=== PATIENT | male | born 1945 | race African-American/Black ===

== ENCOUNTER 2020-07-03 10:51 | Inpatient (IN) | payer MEDICARE, OTHER ==
[~2020-07-03] VITALS: Ht 177.8 cm; Wt 59.9 kg
--- NOTE | 2020-07-03 11:38 | PHYS DOC ---
General Adult EDM: Chief Complaint: SEIZURE HPI: HPI: Patient is a 74 year old male from a prison very poor historian with aphasia, left-sided hemiplegia, cognitive deficits, who presents to the ED today to be evaluated after having 5 seizures during the night. It is unknown if the seizures were witnessed or not he is from a prison. Review of Systems: Review of Systems: Constitutional: Denies fever or chills. [] Eyes: Denies change in visual acuity. [] HENT: Denies nasal congestion or sore throat. [] Respiratory: Denies cough or shortness of breath. [] Cardiovascular: Denies chest pain or edema. [] GI: Denies abdominal pain, nausea, vomiting, bloody stools or diarrhea. [] : Denies dysuria. [] Musculoskeletal: Denies back pain or joint pain. [] Integument: Denies rash. [] Neurologic: Reports seizures. Denies headache, focal weakness or sensory changes. [] Endocrine: Denies polyuria or polydipsia. [] Lymphatic: Denies swollen glands. [] Psychiatric: Denies depression or anxiety. [] Heart Score: Risk Factors: Risk Factors: DM, Current or recent (<one month) smoker, HTN, HLP, family history of CAD, obesity. Risk Scores: Score 0 - 3: 2.5% MACE over next 6 weeks - Discharge Home Score 4 - 6: 20.3% MACE over next 6 weeks - Admit for Clinical Observation Score 7 - 10: 72.7% MACE over next 6 weeks - Early Invasive Strategies Physical Exam: PE: Constitutional: Well developed, well nourished, no acute distress, non-toxic appearance. [] HENT: Normocephalic, atraumatic, bilateral external ears normal, oropharynx moist, no oral exudates, nose normal. [] Eyes: PERRLA, EOMI, conjunctiva normal, no discharge. [] Neck: Normal range of motion, no tenderness, supple, no stridor. [] Cardiovascular:Heart rate regular rhythm, no murmur [] Lungs & Thorax: Bilateral breath sounds clear to auscultation [] Abdomen: Feeding tube present bowel sounds normal, soft, no tenderness, no mas ses, no pulsatile masses. [] Skin: Warm, dry, no erythema, no rash. [] Male -moderately swollen testicles. Unknown if this is chronic Back: No tenderness, no CVA tenderness. [] Extremities: Left sided weakness noted. No tenderness, no cyanosis, no clubbing, ROM limited to the left side, no edema. [] Neurologic: Left facial droop likely chronic. Chronic left facial droop noted. Left hemiplegic. alert and oriented X 1, normal motor function, normal sensory function, no focal deficits noted. [] Psychologic: Flat affect EKG: EKG: [] Radiology/Procedures: Radiology/Procedures: []PROCEDURE: CT HEAD WO CONTRAST CT HEAD WO CONTRAST Date: 07/03/2020 12:11 PM Clinical Indication: Reason: seizures / Spl. Instructions: / History: Comparison: 06/10/2019. Technique: 5 mm axial tomographic images were obtained of the head without contrast. These were viewed on brain and bone windows. One or more of the following dose reduction techniques were utilized: Automated exposure control (AEC), Adjustment of mA and/or kV according to patient size, Use of iterative reconstruction technique such as ASiR, CT scan done according to ALARA and image gently/image wisely Findings: Moderate generalized cerebral and cerebellar volume loss. Extensive nonspecific periventricular hypoattenuation, most commonly seen with chronic small vessel ischemic disease. Calcified atherosclerosis of the bilateral cavernous and paraclinoid internal carotid arteries and intracranial vertebral arteries. No intra- or extra-axial mass or fluid collection. No acute hemorrhage. The ventricles are normal in size, shape, and morphology. The hicks-white matter junction is normal. The subarachnoid cisterns are patent. Old right lamina papyracea fracture. Frontal sinus mucosal thickening. The visualized portions of the orbits and globes are normal. The mastoid air cells are clear. The call center nurse topogram shows no lytic lesion or fracture. Impression: No acute intracranial process. Moderate cerebral volume loss. Extensive chronic small vessel ischemic disease. Electronically signed by: Cecil Garcia MD (07/03/2020 12:31 PM) [id number] DICTATED and SIGNED BY: CECIL GARCIA MD DATE: 07/03/20 1231 ROCEDURE: PORTABLE CHEST 1V AP chest. HISTORY: Left-sided weakness AP view was taken of the chest. There is mild density in both lung bases from atelectasis or infiltrates. There is no effusion. Heart is within normal limits in size without heart failure. IMPRESSION: 1. Basilar atelectasis or infiltrates. Electronically signed by: Nolan Falcon MD (07/03/2020 12:31 PM) [facility] DICTATED and SIGNED BY: NOLAN FALCON MD DATE: 07/03/20 1231 Course & Med Decision Making: Course & Med Decision Making Pertinent Labs and Imaging studies reviewed. (See chart for details) This is a 74-year-old male patient presenting to the ED today from the local prison to be evaluated for seizures. From EMS report patient apparently had 5 seizures through the night. Patient is a very poor historian. Has some aphasia-chronic. Vitals on arrival to the ED temperature 99.7, heart rate 68, blood pressure 173/78, O2 sats 98% on room air, respiration 28. Ct of the head of head is negative. Chest x-ray noted for bilateral infiltrates versus atelectasis. CBC with a WBC of 14.7, hemoglobin 12.9, hematocrit 38.9. Troponin is normal, EKG with no acute findings, Dilantin 2.1, lactic 2.3, CK 577. Patient was started on antibiotics and IV fluids. Considering his edematous testicles we started him on IV fluids but cautiously. He was started on antibiotics Rocephin and azithromycin given in the ED. Spoke with Dr. Palomares who accepted patient for admission Routine consult placed for neurology. Víctor Disclaimer: Víctor Disclaimer: This electronic medical record was generated, in whole or in part, using a voice recognition dictation system. Date and Time of Reassessment Date: Jul 03, 2020 Time: 14:15 Fluid Challenge Is the fluid challenge complet: No IBW Target Volume Used: No BMI > 30: Yes Vital Signs Vital Signs: Vital Signs Date Time Temp Pulse Resp B/P (MAP) Pulse Ox O2 Delivery O2 Flow Rate FiO2 07/03/20 10:58 99.7 68 28 173/78 (109) 98 Room Air 99.7 Temperature Source: Oral Respirations Respiratory Effort: Normal Respiratory Pattern: Normal Cardiovascular Pulse Rhythm: Regular Heart: Nml rate, reg. rhythm Lung Sounds Breath Sounds: Clear Capillary Refil Capillary Refill: Rt Hand > 3 seconds Peripheral Pulse Pulse Location: Monitor Pulse Strength: Normal (2+) Pulse Assessment Method: Monitor Integumentary Skin: Warm Skin Moisture: Dry Skin Turgor: Normal Skin Color: warm Fingernail Color: WNL Departure Departure Impression: Primary Impression: Seizure Additional Impressions: Bilateral pulmonary infiltrates on CXR Sepsis Qualified Codes: A41.9 - Sepsis, unspecified organism Person under investigation for COVID-19 Disposition: ADMITTED INPATIENT Condition: STABLE Justicifation of Admission Dx: Justifications for Admission: Justification of Admission Dx: Yes Aspiration Pneumonia: Hemodynamic Instability [facility] REPRESENTATIVE Jul 03, 2020 11:38
[2020-07-03] MEDS ORDERED: MORPHINE SULFATE 10 MG/ML VIAL. IV ONE (12:00)
[2020-07-03 12:04] LABS: BASO % 0 % (0-3); EOS % 0 % (0-3); HEMATOCRIT 38.9 % (39.0-53.0); HEMOGLOBIN 12.9 g/dL (13.0-17.5); LYMPH # 0.9 x10^3/uL (1.0-4.8); LYMPH % 6 % (24-48); MEAN CORPUSCULAR HEMOGLOBIN 33 pg (25-35); MEAN CORPUSCULAR HGB CONC 33 g/dL (31-37); MEAN CORPUSCULAR VOLUME 99 fL (79-100); MONO % 7 % (0-9); NEUT # 12.8 x10^3/uL (1.8-7.7); NEUT % 87 % (31-73); PLATELET COUNT 242 x10^3/uL (140-400); RED BLOOD COUNT 3.92 x10^6/uL (4.30-5.70); RED CELL DISTRIBUTION WIDTH 13.3 % (11.5-14.5); WHITE BLOOD COUNT 14.7 x10^3/uL (4.0-11.0)
[2020-07-03 12:05] LABS: BILIRUBIN,URINE NEGATIVE (NEG); CLARITY,URINE CLEAR; COLOR,URINE YELLOW; NITRITE,URINE NEGATIVE (NEG); PH,URINE 5.5 (<5.0-8.0); PROTEIN,URINE NEGATIVE (NEG-TRACE)
[2020-07-03 12:11] LABS: ANION GAP 12 (6-14); BLOOD UREA NITROGEN 11 mg/dL (8-26); BUN/CREATININE RATIO 10 (6-20); CALCIUM 9.3 mg/dL (8.5-10.1); CARBON DIOXIDE 25 mmol/L (21-32); CHLORIDE 103 mmol/L (98-107); CREATININE 1.1 mg/dL (0.7-1.3); GFR 78.7; GLUCOSE 108 mg/dL (70-99); POTASSIUM 4.7 mmol/L (3.5-5.1); PROTHROMBIN TIME PATIENT 13.8 SEC (11.7-14.0); SODIUM 140 mmol/L (136-145)
[2020-07-03 12:15] LABS: BARBITURATES NEG (NEG); BENZODIAZEPINES NEG (NEG); CANNABINOIDS NEG (NEG); COCAINE NEG (NEG); METHADONE NEG (NEG); OPIATES NEG (NEG); PHENCYCLIDINE NEG (NEG)
[2020-07-03 12:16] LABS: AMPHETAMINE/METHAMPHETAMINE NEG (NEG)
[2020-07-03 12:17] LABS: ALBUMIN 3.9 g/dL (3.4-5.0); ALBUMIN/GLOBULIN RATIO 1.1 (1.0-1.7); ALK PHOS 84 U/L (46-116); ALT (SGPT) 17 U/L (16-63); AST (SGOT) 21 U/L (15-37); MAGNESIUM 2.2 mg/dL (1.8-2.4); PHENY 2.1 mcg/mL (10.0-20.0); TOTAL BILIRUBIN 0.7 mg/dL (0.2-1.0); TOTAL PROTEIN 7.5 g/dL (6.4-8.2)
[2020-07-03 12:18] LABS: HYALINE CASTS, URINE FEW /HPF; SQUAMOUS EPITHELIAL CELL,UR FEW /LPF
[2020-07-03 12:19] LABS: BACTERIA,URINE 0 /HPF (0-FEW); RBC,URINE >40 /HPF (0-2); WBC,URINE 0 /HPF (0-4)
--- NOTE | 2020-07-03 12:34 | RAD ---
CT HEAD WO CONTRAST Date: 07/03/2020 12:11 PM Clinical Indication: Reason: seizures / Spl. Instructions: / History: Comparison: 06/10/2019. Technique: 5 mm axial tomographic images were obtained of the head without contrast. These were viewed on brain and bone windows. One or more of the following dose reduction techniques were utilized: Automated exposure control (AEC), Adjustment of mA and/or kV according to patient size, Use of iterative reconstruction technique such as ASiR, CT scan done according to ALARA and image gently/image wisely Findings: Moderate generalized cerebral and cerebellar volume loss. Extensive nonspecific periventricular hypoattenuation, most commonly seen with chronic small vessel ischemic disease. Calcified atherosclerosis of the bilateral cavernous and paraclinoid internal carotid arteries and intracranial vertebral arteries. No intra- or extra-axial mass or fluid collection. No acute hemorrhage. The ventricles are normal in size, shape, and morphology. The hicks-white matter junction is normal. The subarachnoid cisterns are patent. Old right lamina papyracea fracture. Frontal sinus mucosal thickening. The visualized portions of the orbits and globes are normal. The mastoid air cells are clear. The manager pmo topogram shows no lytic lesion or fracture. Impression: No acute intracranial process. Moderate cerebral volume loss. Extensive chronic small vessel ischemic disease. Electronically signed by: Harsha Garcia MD (07/03/2020 12:31 PM) [id number]
--- NOTE | 2020-07-03 12:34 | RAD ---
AP chest. HISTORY: Left-sided weakness AP view was taken of the chest. There is mild density in both lung bases from atelectasis or infiltrates. There is no effusion. Heart is within normal limits in size without heart failure. IMPRESSION: 1. Basilar atelectasis or infiltrates. Electronically signed by: Nolan Falcon MD (07/03/2020 12:31 PM) [facility]
[2020-07-03 13:17] LABS: % LYMPHS 4 % (24-48); % MONOS 6 % (0-10); % SEGS 90 % (35-66); PLT ESTIMATE ADEQUATE (ADEQUATE)
[2020-07-03] MEDS ORDERED: FOSPHENYTOIN 1,000 MG in IV NORMAL SALINE 50ML 50 ML IV ONE (14:00)
[2020-07-03] MEDS ORDERED: cefTRIAXone IV Push 1 GM VIAL. IVP ONE (14:15)
[2020-07-03] MEDS ORDERED: AZITHRMYCN 500MG IVPB FOR OMNI 250 ML IV ONE (14:15)
--- NOTE | 2020-07-03 14:53 | HP ---
ADMIT DATE: 07/03/2020 CHIEF COMPLAINT: Seizure. HISTORY OF PRESENT ILLNESS: The patient is a pleasant 74-year-old male with known seizure disorder. He is on Dilantin. He had a breakthrough seizure today. There was some concern he could have aspirated, indeed he does have abnormal chest x-ray with possible pneumonia. His Dilantin level was subtherapeutic at 2.1. I discussed the case with the ER physician. We are going to admit the patient, give him a gram of IV fosphenytoin and consult Neurology and treatment for his pneumonia. PAST MEDICAL HISTORY: Seizures. ALLERGIES: None. FAMILY HISTORY: Hypertension. SOCIAL HISTORY: He does not drink, smoke or take drugs. He lives in a jail. MEDICATIONS: Reviewed, please refer to the MRAD. REVIEW OF SYSTEMS: Unable to obtain. The patient is a little weak and postictal. PHYSICAL EXAMINATION: VITALS: Within normal limits and are stable. GENERAL: He is sleeping. HEENT: Normal cephalic atraumatic, external auditory canals are patent EYES: Extraocular muscles are intact, pupils are equally round and reactive to light and accommodation MUSCULOSKELETAL: Well developed, well nourished, good range of motion ENDOCRINE: No thyromegaly was palpated LYMPHATICS: No cervical chain or axillary nodes were noted HEMATOPOIETIC: No bruising NECK: Supple, no JVD, no thyromegaly was noted. LUNGS: Clear to auscultation in all lung diaz without rhonchi or wheezing. HEART: RRR, S1, S2 present. Peripheral pulses intact, no obvious murmurs were noted. ABDOMEN: Soft, nontender. Positive bowel sounds no organomegaly, normal bowel sounds. EXTREMITIES: Without any cyanosis, clubbing, or edema. Pedal pulses intact, Homans sign is negative. NEUROLOGIC: He is somewhat obtunded. He wakes up and goes back to sleep. PSYCHIATRIC: Unobtainable. SKIN: No ulcerations or rashes, good skin turgor, no jaundice. VASCULAR: Good capillary refill, neurovascular bundle appears to be intact. weakness. LABORATORY DATA: White count 14.7, hemoglobin 12.9, platelets 242. Electrolytes are normal. Lactic acid little high at 2.3. CPK little high at 577. BNP slightly high at 703. INR is 1.1. Phenytoin level 2.1. Urinalysis is negative. ASSESSMENT AND PLAN: Breakthrough seizures with subtherapeutic Dilantin level. We will go ahead and reload him with 1 gram of IV fosphenytoin. Consult Neurology. Regarding the abnormal chest x-ray, we will consult Pulmonary. Give IV antibiotics. Breathing treatments, oxygen, home meds, DVT prophylaxis. Full code. YOLETTE WIGGINS DO DR: HAZEL/micah JOB#: [id number] / [id number]
[2020-07-03] MEDS ORDERED: IV NORMAL SALINE 1000ML BAG 1,000 ML IV ONE (15:15)
[2020-07-03] MEDS ORDERED: ONDANSETRON PF 4 MG/2 ML VIAL. IV PRN (15:15)
[2020-07-03] MEDS ORDERED: MORPHINE SULFATE 4 MG/ML VIAL. IV PRN (15:15)
[2020-07-03 16:00] VITALS: BP 174/75
[2020-07-03] MEDS ORDERED: FLUT9.9S NS (16:52)
[2020-07-03] MEDS ORDERED: LORA2ORA2 PO (16:52)
[2020-07-03] MEDS ORDERED: MAGN400O7 PO (16:52)
[2020-07-03] MEDS ORDERED: PHEN100C PO (16:52)
[2020-07-03] MEDS ORDERED: AMLO2.5T5 PO (16:52)
[2020-07-03] MEDS ORDERED: ACET325T21 PO (16:52)
[2020-07-03] MEDS ORDERED: METO25TA4 PO (16:52)
[2020-07-03 19:00] VITALS: BP 158/74
--- NOTE | 2020-07-03 21:13 | PDOC2 ---
NEUROLOGY CONSULT Date of Admission Date of Admission Full Report Dictated Patient is a 74-year-old man who is resident of a shelter. 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 He has a seizure disorder. He has been maintained on Dilantin. I looked through the shelter records and they had Dilantin on hold apparently due to toxicity although I do not have the level. The Dilantin has been on hold for a long time and he became subtherapeutic and had a breakthrough seizure with possible aspiration. I am going to switch him to Keppra 500 mg twice per day as this medication has linear kinetics. The dosage can be increased if he has breakthrough seizure. The absorption of Dilantin can fluctuate greatly even if taken at the same time every day. DATE: 07/03/20 TIME: 21:10 Current Medications Current Medications Current Medications Morphine Sulfate (Morphine Sulfate) 5 mg 1X ONCE IV Last administered on 07/03/20at 12:45; Start 07/03/20 at 12:00; Stop 07/03/20 at 12:02; Status DC Fosphenytoin Sodium 1000 mg/ Sodium Chloride 70 ml @ 280 mls/hr 1X ONCE IV Last administered on 07/03/20at 14:42; Start 07/03/20 at 14:00; Stop 07/03/20 at 14:14; Status DC Ceftriaxone Sodium (Rocephin) 1 gm 1X ONCE IVP Last administered on 07/03/20at 14:39; Start 07/03/20 at 14:15; Stop 07/03/20 at 14:16; Status DC Azithromycin 250 ml @ 250 mls/hr 1X ONCE IV Last administered on 07/03/20at 15:03; Start 07/03/20 at 14:15; Stop 07/03/20 at 15:14; Status DC Ondansetron HCl (Zofran) 4 mg PRN Q8HRS PRN IV NAUSEA/VOMITING; Start 07/03/20 at 15:15; Stop 07/04/20 at 15:14 Morphine Sulfate (Morphine Sulfate) 4 mg PRN Q2HR PRN IV PAIN Last administered on 07/03/20at 15:49; Start 07/03/20 at 15:15; Stop 07/04/20 at 15:14 Sodium Chloride 1,000 ml @ 100 mls/hr 1X ONCE IV Last administered on 07/03/20at 17:57; Start 07/03/20 at 15:15; Stop 07/04/20 at 01:14 Active Scripts Active Reported Milk Of Magnesia (Magnesium Hydroxide) 400 Mg/5 Ml Oral.susp 400 Mg PO PRN PRN Metoprolol Tartrate 25 Mg Tablet 12.5 Mg PO DAILY Lorazepam 2 Mg/1 Ml Oral.conc 0.5 Mg PO Q4HRS Flonase Allergy Relief (Fluticasone Propionate) 9.9 Ml [place].susp 2 Sprays NS BID Dilantin (Phenytoin Sodium Extended) 100 Mg Capsule 200 Mg PO DAILYWSUP Amlodipine Besylate 2.5 Mg Tablet 2.5 Mg PO BID Acetaminophen 325 Mg Tablet 2 Tab PO PRN Q4-6HRS PRN 24 Days Allergies Allergies: Coded Allergies: aspirin (Verified Allergy, Unknown, Unknown, 07/03/20) lisinopril (Verified Allergy, Unknown, Unknown, 07/03/20) Vitals VITALS Vital Signs Date Time Temp Pulse Resp B/P (MAP) Pulse Ox O2 Delivery O2 Flow Rate FiO2 07/03/20 19:00 99.8 69 20 158/74 (102) 97 Room Air 99.8 Labs Labs Laboratory Tests Test 07/03/20 11:10 07/03/20 11:40 07/03/20 13:38 07/03/20 18:00 Urine Collection Type U cath Urine Color Yellow Urine Clarity Clear Urine pH 5.5 (<5.0-8.0) Urine Specific [place] 1.020 (1.000-1.030) Urine Protein Negative mg/dL (NEG-TRACE) Urine Glucose (UA) Negative mg/dL (NEG) Urine Ketones (Stick) Negative mg/dL (NEG) Urine Blood Moderate (NEG) Urine Nitrite Negative (NEG) Urine Bilirubin Negative (NEG) Urine Urobilinogen Dipstick 1.0 mg/dL (0.2 mg/dL) Urine Leukocyte Esterase Negative (NEG) Urine RBC >40 /HPF (0-2) Urine WBC 0 /HPF (0-4) Urine Squamous Epithelial Cells Few /LPF Urine Transitional Epithelial Cells Mod /LPF Urine Bacteria 0 /HPF (0-FEW) Urine Hyaline Casts Few /HPF Urine Mucus Marked /LPF Urine Opiates Screen Neg (NEG) Urine Methadone Screen Neg (NEG) Urine Barbiturates Neg (NEG) Urine Phencyclidine Screen Neg (NEG) Urine Amphetamine/Methamphetamine Neg (NEG) Urine Benzodiazepines Screen Neg (NEG) Urine Cocaine Screen Neg (NEG) Urine Cannabinoids Screen Neg (NEG) Urine Ethyl Alcohol Neg (NEG) White Blood Count 14.7 x10^3/uL (4.0-11.0) Red Blood Count 3.92 x10^6/uL (4.30-5.70) Hemoglobin 12.9 g/dL (13.0-17.5) Hematocrit 38.9 % (39.0-53.0) Mean Corpuscular Volume 99 fL (79-100) Mean Corpuscular Hemoglobin 33 pg (25-35) Mean Corpuscular Hemoglobin Concent 33 g/dL (31-37) Red Cell Distribution Width 13.3 % (11.5-14.5) Platelet Count 242 x10^3/uL (140-400) Neutrophils (%) (Auto) 87 % (31-73) Lymphocytes (%) (Auto) 6 % (24-48) Monocytes (%) (Auto) 7 % (0-9) Eosinophils (%) (Auto) 0 % (0-3) Basophils (%) (Auto) 0 % (0-3) Neutrophils # (Auto) 12.8 x10^3/uL (1.8-7.7) Lymphocytes # (Auto) 0.9 x10^3/uL (1.0-4.8) Monocytes # (Auto) 1.0 x10^3/uL (0.0-1.1) Eosinophils # (Auto) 0.0 x10^3/uL (0.0-0.7) Basophils # (Auto) 0.0 x10^3/uL (0.0-0.2) Segmented Neutrophils % 90 % (35-66) Lymphocytes % 4 % (24-48) Monocytes % 6 % (0-10) Platelet Estimate Adequate (ADEQUATE) Prothrombin Time 13.8 SEC (11.7-14.0) Prothromb Time International Ratio 1.1 (0.8-1.1) Activated Partial Thromboplast Time 28 SEC (24-38) Sodium Level 140 mmol/L (136-145) Potassium Level 4.7 mmol/L (3.5-5.1) Chloride Level 103 mmol/L (98-107) Carbon Dioxide Level 25 mmol/L (21-32) Anion Gap 12 (6-14) Blood Urea Nitrogen 11 mg/dL (8-26) Creatinine 1.1 mg/dL (0.7-1.3) Estimated GFR (Cockcroft-Gault) 78.7 BUN/Creatinine Ratio 10 (6-20) Glucose Level 108 mg/dL (70-99) Calcium Level 9.3 mg/dL (8.5-10.1) Magnesium Level 2.2 mg/dL (1.8-2.4) Total Bilirubin 0.7 mg/dL (0.2-1.0) Aspartate Amino Transf (AST/SGOT) 21 U/L (15-37) Alanine Aminotransferase (ALT/SGPT) 17 U/L (16-63) Alkaline Phosphatase 84 U/L (46-116) Creatine Kinase 577 U/L (39-308) Creatine Kinase MB (Mass) 1.2 ng/mL (0.0-3.6) Creatine Kinase MB Relative Index 0.2 % (0-4) Troponin I Quantitative < 0.017 ng/mL (0.000-0.055) IF-Ofk-R-Type Natriuretic Peptide 703 pg/mL (0-449) Total Protein 7.5 g/dL (6.4-8.2) Albumin 3.9 g/dL (3.4-5.0) Albumin/Globulin Ratio 1.1 (1.0-1.7) Procalcitonin < 0.10 ng/mL (0.00-0.10) Phenytoin (Dilantin) Level 2.1 mcg/mL (10.0-20.0) Phenytoin Last Dose Date 07/02/20 Phenytoin Last Dose Time 2100 Lactic Acid Level 2.3 mmol/L (0.4-2.0) 2.2 mmol/L (0.4-2.0) Laboratory Tests Test 07/03/20 11:10 07/03/20 11:40 07/03/20 13:38 07/03/20 18:00 Urine Collection Type U cath Urine Color Yellow Urine Clarity Clear Urine pH 5.5 (<5.0-8.0) Urine Specific [place] 1.020 (1.000-1.030) Urine Protein Negative mg/dL (NEG-TRACE) Urine Glucose (UA) Negative mg/dL (NEG) Urine Ketones (Stick) Negative mg/dL (NEG) Urine Blood Moderate (NEG) Urine Nitrite Negative (NEG) Urine Bilirubin Negative (NEG) Urine Urobilinogen Dipstick 1.0 mg/dL (0.2 mg/dL) Urine Leukocyte Esterase Negative (NEG) Urine RBC >40 /HPF (0-2) Urine WBC 0 /HPF (0-4) Urine Squamous Epithelial Cells Few /LPF Urine Transitional Epithelial Cells Mod /LPF Urine Bacteria 0 /HPF (0-FEW) Urine Hyaline Casts Few /HPF Urine Mucus Marked /LPF Urine Opiates Screen Neg (NEG) Urine Methadone Screen Neg (NEG) Urine Barbiturates Neg (NEG) Urine Phencyclidine Screen Neg (NEG) Urine Amphetamine/Methamphetamine Neg (NEG) Urine Benzodiazepines Screen Neg (NEG) Urine Cocaine Screen Neg (NEG) Urine Cannabinoids Screen Neg (NEG) Urine Ethyl Alcohol Neg (NEG) White Blood Count 14.7 x10^3/uL (4.0-11.0) Red Blood Count 3.92 x10^6/uL (4.30-5.70) Hemoglobin 12.9 g/dL (13.0-17.5) Hematocrit 38.9 % (39.0-53.0) Mean Corpuscular Volume 99 fL (79-100) Mean Corpuscular Hemoglobin 33 pg (25-35) Mean Corpuscular Hemoglobin Concent 33 g/dL (31-37) Red Cell Distribution Width 13.3 % (11.5-14.5) Platelet Count 242 x10^3/uL (140-400) Neutrophils (%) (Auto) 87 % (31-73) Lymphocytes (%) (Auto) 6 % (24-48) Monocytes (%) (Auto) 7 % (0-9) Eosinophils (%) (Auto) 0 % (0-3) Basophils (%) (Auto) 0 % (0-3) Neutrophils # (Auto) 12.8 x10^3/uL (1.8-7.7) Lymphocytes # (Auto) 0.9 x10^3/uL (1.0-4.8) Monocytes # (Auto) 1.0 x10^3/uL (0.0-1.1) Eosinophils # (Auto) 0.0 x10^3/uL (0.0-0.7) Basophils # (Auto) 0.0 x10^3/uL (0.0-0.2) Segmented Neutrophils % 90 % (35-66) Lymphocytes % 4 % (24-48) Monocytes % 6 % (0-10) Platelet Estimate Adequate (ADEQUATE) Prothrombin Time 13.8 SEC (11.7-14.0) Prothromb Time International Ratio 1.1 (0.8-1.1) Activated Partial Thromboplast Time 28 SEC (24-38) Sodium Level 140 mmol/L (136-145) Potassium Level 4.7 mmol/L (3.5-5.1) Chloride Level 103 mmol/L (98-107) Carbon Dioxide Level 25 mmol/L (21-32) Anion Gap 12 (6-14) Blood Urea Nitrogen 11 mg/dL (8-26) Creatinine 1.1 mg/dL (0.7-1.3) Estimated GFR (Cockcroft-Gault) 78.7 BUN/Creatinine Ratio 10 (6-20) Glucose Level 108 mg/dL (70-99) Calcium Level 9.3 mg/dL (8.5-10.1) Magnesium Level 2.2 mg/dL (1.8-2.4) Total Bilirubin 0.7 mg/dL (0.2-1.0) Aspartate Amino Transf (AST/SGOT) 21 U/L (15-37) Alanine Aminotransferase (ALT/SGPT) 17 U/L (16-63) Alkaline Phosphatase 84 U/L (46-116) Creatine Kinase 577 U/L (39-308) Creatine Kinase MB (Mass) 1.2 ng/mL (0.0-3.6) Creatine Kinase MB Relative Index 0.2 % (0-4) Troponin I Quantitative < 0.017 ng/mL (0.000-0.055) EG-Gde-T-Type Natriuretic Peptide 703 pg/mL (0-449) Total Protein 7.5 g/dL (6.4-8.2) Albumin 3.9 g/dL (3.4-5.0) Albumin/Globulin Ratio 1.1 (1.0-1.7) Procalcitonin < 0.10 ng/mL (0.00-0.10) Phenytoin (Dilantin) Level 2.1 mcg/mL (10.0-20.0) Phenytoin Last Dose Date 07/02/20 Phenytoin Last Dose Time 2100 Lactic Acid Level 2.3 mmol/L (0.4-2.0) 2.2 mmol/L (0.4-2.0) RYAN MCGOVERN MD Jul 03, 2020 21:13
[2020-07-03] MEDS ORDERED: levETIRAcetam 500 MG TABLET PO SCH (21:30)
--- NOTE | 2020-07-03 21:42 | CONS ---
DATE OF CONSULTATION: 07/03/2020 REFERRING PHYSICIAN: Dr. Cliff Connor. REASON FOR CONSULTATION: Breakthrough seizure with aspiration pneumonia. HISTORY OF PRESENT ILLNESS: The patient is a 74-year-old man who is a resident of [facility]. He has a known seizure disorder and was maintained on Dilantin. He reports that Dilantin was on hold because his level was too high. I reviewed his records from his facility and that is confirmed. The Dilantin level was on hold, although I do not know how long he has been without the medication. He thinks it has been about 3-4 days. He had a seizure today. He possibly aspirated and in fact has an abnormal chest x-ray with possible pneumonia. Dilantin level was taken and found to be subtherapeutic at 2.1. He did receive a gram of IV fosphenytoin to try to boost the level. PAST MEDICAL HISTORY: 1. Seizure. 2. Dysphagia, oropharyngeal phase. 3. 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 4. Generalized muscle weakness. 5. Recurrent falls. 6. Difficulty in walking. 7. Cognitive communication deficit. 8. Systolic and diastolic congestive heart failure. ALLERGIES: No known allergies to drugs. MEDICATIONS PRIOR TO ADMISSION: Tylenol 650 mg as needed, amlodipine 2.5 mg twice per day, Dilantin, which was written at 200 mg in the evening, but was on hold from June, looks like it is the hold, started on 06/21/2020. Flonase nasal, lorazepam 0.5 mg as needed, metoprolol 12.5 mg daily, and milk of magnesia as needed. FAMILY HISTORY: Hypertension. SOCIAL HISTORY: He is a resident of a [facility]. He does not smoke tobacco, drink alcohol or use recreational drugs. REVIEW OF SYSTEMS: He is a limited historian. He does not complain of headache or pain. He notes weakness bilaterally, but more on the left side. He does not note numbness. He has had some shortness of breath and cough. He is not complaining of chest or abdominal pain. He does not complain of bone or joint pain. He is not aware of fever or rash. Does not report gastrointestinal or genitourinary complaints. He states he does not walk. He does not complain of excessive bruising or bleeding or even swelling. PHYSICAL EXAMINATION: VITAL SIGNS: The blood pressure was 158/74, pulse 69, respirations 20, temperature 99.8 degrees axillary, earlier today was 101.2 orally. Oximetry was 97% on room air. He was in isolation as a person under investigation for possible COVID. GENERAL: He was alert, awake and cooperative. Speech was dysarthric and difficult to understand at times. He was sleepy. Attention and concentration was impaired. He was not oriented. NEUROLOGIC: Examination of the cranial nerves revealed visual diaz were not full to confrontation. He seemed to have some right lower quadrant visual field loss. Extraocular movements were intact. The eyes were conjugate. Pupils were 2 mm. Funduscopic exam was not possible. Sensory: Facial sensation was intact. The muscles of mastication revealed left facial drooping. Hearing was intact to finger rub. The palate arched symmetrically and the tongue was midline. Shoulder shrug was delayed on the left. Muscle bulk was diminished. Tone was not spastic or rigid. He had arm drift bilaterally. Power was weak and definitely in the left arm greater than the right with stationary engineer, finger abduction, elbow flexion, elbow extension, and arm abduction. Lower Extremities: He also had some more weakness on the left side than the right with hip and knee flexion 4+/5. Dorsi and plantar flexion were powerful. Reflexes were impaired throughout. Toes were not upgoing. Coordination testing with [id number], fine motor and rapid movement was very difficult as he could not grasp the concepts very well. He clearly did not do as well with [id number] with the left hand as the right and bwyn-iw-[id number] left leg was impaired compared to the right. Sensory exam also was somewhat suspect due to being a poor sensory witness. He did appear to have proprioception in all extremities. Pain, light touch, cold thermal and vibration appeared intact. He could not get graphesthesia on either hand. Gait was not testable. There was no extinction to double simultaneous stimulation. NECK: Auscultation of the carotid arteries did not reveal a bruit. HEART: Rhythm was regular without a murmur. EXTREMITIES: Peripheral pulses were symmetric in the wrists and feet. There was no edema or cyanosis. LABORATORY RESULTS: CBC was performed on 07/03/2020 revealing an elevated white count at 14.7. The hemoglobin was diminished at 12.9, hematocrit 38.9, and platelet count was 242. Chemistries were performed on 07/03/2020. The electrolytes were normal as was BUN and creatinine. The GFR calculated at 78.7. Glucose was elevated to 108. Calcium was normal as was albumin and total protein. The liver enzymes were not elevated. Lactic acid was elevated to 2.2 and 2.3. Troponin was not elevated. BNP was elevated at 703. Procalcitonin was not elevated. CPK was elevated at 577. Urine drug screen was negative. Phenytoin level was subtherapeutic at 2.1 on 07/02/2020. Urinalysis revealed greater than 40 red blood cells, few squamous epithelial cells and moderate transitional epithelial cells. There were a few hyaline casts. PT/INR was 1.1 and PTT was 28. DIAGNOSTIC RESULTS: CT scan of the head was performed on 07/03/2020 revealing no acute intracranial process. There was moderate atrophy and extensive chronic small vessel disease. There was calcified arteriosclerosis of the bilateral cavernous and paraclinoid internal carotid arteries and intracranial vertebral arteries. There was no mass. There was an old right lamina fracture. There was frontal sinus mucosal thickening. Chest x-ray was performed on 07/03/2020 revealing bibasilar atelectasis or infiltrates. IMPRESSION: The patient is a 74-year-old man who is a resident of a [facility]. He has had multiple strokes. He has a seizure disorder and had been maintained on Dilantin. Apparently, he was toxic on Dilantin, but the level was held for a very long period of time and he is now extremely subtherapeutic. The problem with Dilantin as the absorption can vary greatly despite taking it regularly. RECOMMENDATIONS: I would like to switch Dilantin to Keppra, beginning tonight at 500 mg twice per day. This has linear kinetics and will be much easier to adjust. If there are breakthrough seizures, the dosage can be increased. We will discontinue any further Dilantin at this time. He will be treated for underlying infection. I appreciate being involved in his care. RYAN MCGOVERN MD DR: CHRISTOPHER/micah JOB#: [id number] / [id number]
[2020-07-03] MEDS: levETIRAcetam 500 MG in IV DEXTROSE 5% 100ML 100 ML IV SCH (21:49)
[2020-07-03 23:00] VITALS: BP 139/67
[2020-07-04 05:36] LABS: BASO % 0 % (0-3); EOS % 0 % (0-3); HEMATOCRIT 33.4 % (39.0-53.0); HEMOGLOBIN 11.4 g/dL (13.0-17.5); LYMPH # 1.2 x10^3/uL (1.0-4.8); LYMPH % 14 % (24-48); MEAN CORPUSCULAR HEMOGLOBIN 33 pg (25-35); MEAN CORPUSCULAR HGB CONC 34 g/dL (31-37); MEAN CORPUSCULAR VOLUME 98 fL (79-100); MONO # 1.2 x10^3/uL (0.0-1.1); MONO % 14 % (0-9); NEUT # 6.1 x10^3/uL (1.8-7.7); NEUT % 72 % (31-73); PLATELET COUNT 209 x10^3/uL (140-400); RED BLOOD COUNT 3.41 x10^6/uL (4.30-5.70); WHITE BLOOD COUNT 8.5 x10^3/uL (4.0-11.0)
[2020-07-04 05:56] LABS: ALBUMIN 3.1 g/dL (3.4-5.0); ALBUMIN/GLOBULIN RATIO 0.9 (1.0-1.7); CALCIUM 8.4 mg/dL (8.5-10.1); CREATININE 1.2 mg/dL (0.7-1.3); GFR 71.2; POTASSIUM 3.6 mmol/L (3.5-5.1); TOTAL BILIRUBIN 0.9 mg/dL (0.2-1.0); TOTAL PROTEIN 6.4 g/dL (6.4-8.2)
[2020-07-04 07:00] VITALS: BP 115/68
[2020-07-04] MEDS: levETIRAcetam 500 MG in IV DEXTROSE 5% 100ML 100 ML IV SCH (08:08)
--- NOTE | 2020-07-04 09:56 | PDOC ---
PROGRESS NOTES Assessment Problems Medical Problems: (1) Bilateral pulmonary infiltrates on CXR Status: Acute (2) Person under investigation for COVID-19 Status: Acute (3) Seizure Status: Acute (4) Sepsis Status: Acute History of multiple strokes, multi-infarct dementia, senior living patient. Epilepsy, breakthrough seizure Apparently he previously had Dilantin toxicity, it was held, but not resumed. Plan Have switched Dilantin to Keppra Okay for discharge any time Follow-up with neurology as needed. Subjective No complaints Objective Vital Signs Date Time Temp Pulse Resp B/P (MAP) Pulse Ox O2 Delivery O2 Flow Rate FiO2 07/04/20 08:00 Room Air 07/04/20 07:00 99.7 63 17 115/68 (84) 96 99.7 Intake and Output 07/04/20 07:00 Intake Total 70 ml Balance 70 ml Intake IV Total 70 ml # Voids 7 PHYSICAL EXAM Alert. Oriented only to person. PERRL. EOMI. CN: left central facial weakness. Muscle tone: Increased on left. Muscle strength: 4/5 DTR: 1+ Plantar reflex: flexor Gait: not examined in bed. Sensory exam: no abnormal findings. Cerebellar: poorly cooperative Review of Relevant I have reviewed the following items bruno (where applicable) has been applied. Labs Laboratory Tests Test 07/03/20 11:10 07/03/20 11:40 07/03/20 13:38 07/03/20 18:00 Urine Collection Type U cath Urine Color Yellow Urine Clarity Clear Urine pH 5.5 (<5.0-8.0) Urine Specific [place] 1.020 (1.000-1.030) Urine Protein Negative mg/dL (NEG-TRACE) Urine Glucose (UA) Negative mg/dL (NEG) Urine Ketones (Stick) Negative mg/dL (NEG) Urine Blood Moderate (NEG) Urine Nitrite Negative (NEG) Urine Bilirubin Negative (NEG) Urine Urobilinogen Dipstick 1.0 mg/dL (0.2 mg/dL) Urine Leukocyte Esterase Negative (NEG) Urine RBC >40 /HPF (0-2) Urine WBC 0 /HPF (0-4) Urine Squamous Epithelial Cells Few /LPF Urine Transitional Epithelial Cells Mod /LPF Urine Bacteria 0 /HPF (0-FEW) Urine Hyaline Casts Few /HPF Urine Mucus Marked /LPF Urine Opiates Screen Neg (NEG) Urine Methadone Screen Neg (NEG) Urine Barbiturates Neg (NEG) Urine Phencyclidine Screen Neg (NEG) Urine Amphetamine/Methamphetamine Neg (NEG) Urine Benzodiazepines Screen Neg (NEG) Urine Cocaine Screen Neg (NEG) Urine Cannabinoids Screen Neg (NEG) Urine Ethyl Alcohol Neg (NEG) White Blood Count 14.7 x10^3/uL (4.0-11.0) Red Blood Count 3.92 x10^6/uL (4.30-5.70) Hemoglobin 12.9 g/dL (13.0-17.5) Hematocrit 38.9 % (39.0-53.0) Mean Corpuscular Volume 99 fL (79-100) Mean Corpuscular Hemoglobin 33 pg (25-35) Mean Corpuscular Hemoglobin Concent 33 g/dL (31-37) Red Cell Distribution Width 13.3 % (11.5-14.5) Platelet Count 242 x10^3/uL (140-400) Neutrophils (%) (Auto) 87 % (31-73) Lymphocytes (%) (Auto) 6 % (24-48) Monocytes (%) (Auto) 7 % (0-9) Eosinophils (%) (Auto) 0 % (0-3) Basophils (%) (Auto) 0 % (0-3) Neutrophils # (Auto) 12.8 x10^3/uL (1.8-7.7) Lymphocytes # (Auto) 0.9 x10^3/uL (1.0-4.8) Monocytes # (Auto) 1.0 x10^3/uL (0.0-1.1) Eosinophils # (Auto) 0.0 x10^3/uL (0.0-0.7) Basophils # (Auto) 0.0 x10^3/uL (0.0-0.2) Segmented Neutrophils % 90 % (35-66) Lymphocytes % 4 % (24-48) Monocytes % 6 % (0-10) Platelet Estimate Adequate (ADEQUATE) Prothrombin Time 13.8 SEC (11.7-14.0) Prothromb Time International Ratio 1.1 (0.8-1.1) Activated Partial Thromboplast Time 28 SEC (24-38) Sodium Level 140 mmol/L (136-145) Potassium Level 4.7 mmol/L (3.5-5.1) Chloride Level 103 mmol/L (98-107) Carbon Dioxide Level 25 mmol/L (21-32) Anion Gap 12 (6-14) Blood Urea Nitrogen 11 mg/dL (8-26) Creatinine 1.1 mg/dL (0.7-1.3) Estimated GFR (Cockcroft-Gault) 78.7 BUN/Creatinine Ratio 10 (6-20) Glucose Level 108 mg/dL (70-99) Calcium Level 9.3 mg/dL (8.5-10.1) Magnesium Level 2.2 mg/dL (1.8-2.4) Total Bilirubin 0.7 mg/dL (0.2-1.0) Aspartate Amino Transf (AST/SGOT) 21 U/L (15-37) Alanine Aminotransferase (ALT/SGPT) 17 U/L (16-63) Alkaline Phosphatase 84 U/L (46-116) Creatine Kinase 577 U/L (39-308) Creatine Kinase MB (Mass) 1.2 ng/mL (0.0-3.6) Creatine Kinase MB Relative Index 0.2 % (0-4) Troponin I Quantitative < 0.017 ng/mL (0.000-0.055) OM-Wzx-R-Type Natriuretic Peptide 703 pg/mL (0-449) Total Protein 7.5 g/dL (6.4-8.2) Albumin 3.9 g/dL (3.4-5.0) Albumin/Globulin Ratio 1.1 (1.0-1.7) Procalcitonin < 0.10 ng/mL (0.00-0.10) Phenytoin (Dilantin) Level 2.1 mcg/mL (10.0-20.0) Phenytoin Last Dose Date 07/02/20 Phenytoin Last Dose Time 2100 Lactic Acid Level 2.3 mmol/L (0.4-2.0) 2.2 mmol/L (0.4-2.0) Test 07/04/20 04:55 White Blood Count 8.5 x10^3/uL (4.0-11.0) Red Blood Count 3.41 x10^6/uL (4.30-5.70) Hemoglobin 11.4 g/dL (13.0-17.5) Hematocrit 33.4 % (39.0-53.0) Mean Corpuscular Volume 98 fL (79-100) Mean Corpuscular Hemoglobin 33 pg (25-35) Mean Corpuscular Hemoglobin Concent 34 g/dL (31-37) Red Cell Distribution Width 13.0 % (11.5-14.5) Platelet Count 209 x10^3/uL (140-400) Neutrophils (%) (Auto) 72 % (31-73) Lymphocytes (%) (Auto) 14 % (24-48) Monocytes (%) (Auto) 14 % (0-9) Eosinophils (%) (Auto) 0 % (0-3) Basophils (%) (Auto) 0 % (0-3) Neutrophils # (Auto) 6.1 x10^3/uL (1.8-7.7) Lymphocytes # (Auto) 1.2 x10^3/uL (1.0-4.8) Monocytes # (Auto) 1.2 x10^3/uL (0.0-1.1) Eosinophils # (Auto) 0.0 x10^3/uL (0.0-0.7) Basophils # (Auto) 0.0 x10^3/uL (0.0-0.2) Sodium Level 142 mmol/L (136-145) Potassium Level 3.6 mmol/L (3.5-5.1) Chloride Level 107 mmol/L (98-107) Carbon Dioxide Level 30 mmol/L (21-32) Anion Gap 5 (6-14) Blood Urea Nitrogen 9 mg/dL (8-26) Creatinine 1.2 mg/dL (0.7-1.3) Estimated GFR (Cockcroft-Gault) 71.2 BUN/Creatinine Ratio 8 (6-20) Glucose Level 116 mg/dL (70-99) Calcium Level 8.4 mg/dL (8.5-10.1) Total Bilirubin 0.9 mg/dL (0.2-1.0) Aspartate Amino Transf (AST/SGOT) 19 U/L (15-37) Alanine Aminotransferase (ALT/SGPT) 11 U/L (16-63) Alkaline Phosphatase 66 U/L (46-116) Total Protein 6.4 g/dL (6.4-8.2) Albumin 3.1 g/dL (3.4-5.0) Albumin/Globulin Ratio 0.9 (1.0-1.7) Laboratory Tests Test 07/03/20 11:10 07/03/20 11:40 07/03/20 13:38 07/03/20 18:00 Urine Collection Type U cath Urine Color Yellow Urine Clarity Clear Urine pH 5.5 (<5.0-8.0) Urine Specific [place] 1.020 (1.000-1.030) Urine Protein Negative mg/dL (NEG-TRACE) Urine Glucose (UA) Negative mg/dL (NEG) Urine Ketones (Stick) Negative mg/dL (NEG) Urine Blood Moderate (NEG) Urine Nitrite Negative (NEG) Urine Bilirubin Negative (NEG) Urine Urobilinogen Dipstick 1.0 mg/dL (0.2 mg/dL) Urine Leukocyte Esterase Negative (NEG) Urine RBC >40 /HPF (0-2) Urine WBC 0 /HPF (0-4) Urine Squamous Epithelial Cells Few /LPF Urine Transitional Epithelial Cells Mod /LPF Urine Bacteria 0 /HPF (0-FEW) Urine Hyaline Casts Few /HPF Urine Mucus Marked /LPF Urine Opiates Screen Neg (NEG) Urine Methadone Screen Neg (NEG) Urine Barbiturates Neg (NEG) Urine Phencyclidine Screen Neg (NEG) Urine Amphetamine/Methamphetamine Neg (NEG) Urine Benzodiazepines Screen Neg (NEG) Urine Cocaine Screen Neg (NEG) Urine Cannabinoids Screen Neg (NEG) Urine Ethyl Alcohol Neg (NEG) White Blood Count 14.7 x10^3/uL (4.0-11.0) Red Blood Count 3.92 x10^6/uL (4.30-5.70) Hemoglobin 12.9 g/dL (13.0-17.5) Hematocrit 38.9 % (39.0-53.0) Mean Corpuscular Volume 99 fL (79-100) Mean Corpuscular Hemoglobin 33 pg (25-35) Mean Corpuscular Hemoglobin Concent 33 g/dL (31-37) Red Cell Distribution Width 13.3 % (11.5-14.5) Platelet Count 242 x10^3/uL (140-400) Neutrophils (%) (Auto) 87 % (31-73) Lymphocytes (%) (Auto) 6 % (24-48) Monocytes (%) (Auto) 7 % (0-9) Eosinophils (%) (Auto) 0 % (0-3) Basophils (%) (Auto) 0 % (0-3) Neutrophils # (Auto) 12.8 x10^3/uL (1.8-7.7) Lymphocytes # (Auto) 0.9 x10^3/uL (1.0-4.8) Monocytes # (Auto) 1.0 x10^3/uL (0.0-1.1) Eosinophils # (Auto) 0.0 x10^3/uL (0.0-0.7) Basophils # (Auto) 0.0 x10^3/uL (0.0-0.2) Segmented Neutrophils % 90 % (35-66) Lymphocytes % 4 % (24-48) Monocytes % 6 % (0-10) Platelet Estimate Adequate (ADEQUATE) Prothrombin Time 13.8 SEC (11.7-14.0) Prothromb Time International Ratio 1.1 (0.8-1.1) Activated Partial Thromboplast Time 28 SEC (24-38) Sodium Level 140 mmol/L (136-145) Potassium Level 4.7 mmol/L (3.5-5.1) Chloride Level 103 mmol/L (98-107) Carbon Dioxide Level 25 mmol/L (21-32) Anion Gap 12 (6-14) Blood Urea Nitrogen 11 mg/dL (8-26) Creatinine 1.1 mg/dL (0.7-1.3) Estimated GFR (Cockcroft-Gault) 78.7 BUN/Creatinine Ratio 10 (6-20) Glucose Level 108 mg/dL (70-99) Calcium Level 9.3 mg/dL (8.5-10.1) Magnesium Level 2.2 mg/dL (1.8-2.4) Total Bilirubin 0.7 mg/dL (0.2-1.0) Aspartate Amino Transf (AST/SGOT) 21 U/L (15-37) Alanine Aminotransferase (ALT/SGPT) 17 U/L (16-63) Alkaline Phosphatase 84 U/L (46-116) Creatine Kinase 577 U/L (39-308) Creatine Kinase MB (Mass) 1.2 ng/mL (0.0-3.6) Creatine Kinase MB Relative Index 0.2 % (0-4) Troponin I Quantitative < 0.017 ng/mL (0.000-0.055) CO-Aym-E-Type Natriuretic Peptide 703 pg/mL (0-449) Total Protein 7.5 g/dL (6.4-8.2) Albumin 3.9 g/dL (3.4-5.0) Albumin/Globulin Ratio 1.1 (1.0-1.7) Procalcitonin < 0.10 ng/mL (0.00-0.10) Phenytoin (Dilantin) Level 2.1 mcg/mL (10.0-20.0) Phenytoin Last Dose Date 07/02/20 Phenytoin Last Dose Time 2100 Lactic Acid Level 2.3 mmol/L (0.4-2.0) 2.2 mmol/L (0.4-2.0) Test 07/04/20 04:55 White Blood Count 8.5 x10^3/uL (4.0-11.0) Red Blood Count 3.41 x10^6/uL (4.30-5.70) Hemoglobin 11.4 g/dL (13.0-17.5) Hematocrit 33.4 % (39.0-53.0) Mean Corpuscular Volume 98 fL (79-100) Mean Corpuscular Hemoglobin 33 pg (25-35) Mean Corpuscular Hemoglobin Concent 34 g/dL (31-37) Red Cell Distribution Width 13.0 % (11.5-14.5) Platelet Count 209 x10^3/uL (140-400) Neutrophils (%) (Auto) 72 % (31-73) Lymphocytes (%) (Auto) 14 % (24-48) Monocytes (%) (Auto) 14 % (0-9) Eosinophils (%) (Auto) 0 % (0-3) Basophils (%) (Auto) 0 % (0-3) Neutrophils # (Auto) 6.1 x10^3/uL (1.8-7.7) Lymphocytes # (Auto) 1.2 x10^3/uL (1.0-4.8) Monocytes # (Auto) 1.2 x10^3/uL (0.0-1.1) Eosinophils # (Auto) 0.0 x10^3/uL (0.0-0.7) Basophils # (Auto) 0.0 x10^3/uL (0.0-0.2) Sodium Level 142 mmol/L (136-145) Potassium Level 3.6 mmol/L (3.5-5.1) Chloride Level 107 mmol/L (98-107) Carbon Dioxide Level 30 mmol/L (21-32) Anion Gap 5 (6-14) Blood Urea Nitrogen 9 mg/dL (8-26) Creatinine 1.2 mg/dL (0.7-1.3) Estimated GFR (Cockcroft-Gault) 71.2 BUN/Creatinine Ratio 8 (6-20) Glucose Level 116 mg/dL (70-99) Calcium Level 8.4 mg/dL (8.5-10.1) Total Bilirubin 0.9 mg/dL (0.2-1.0) Aspartate Amino Transf (AST/SGOT) 19 U/L (15-37) Alanine Aminotransferase (ALT/SGPT) 11 U/L (16-63) Alkaline Phosphatase 66 U/L (46-116) Total Protein 6.4 g/dL (6.4-8.2) Albumin 3.1 g/dL (3.4-5.0) Albumin/Globulin Ratio 0.9 (1.0-1.7) Medications Current Medications Morphine Sulfate (Morphine Sulfate) 5 mg 1X ONCE IV Last administered on 07/03/20at 12:45; Start 07/03/20 at 12:00; Stop 07/03/20 at 12:02; Status DC Fosphenytoin Sodium 1000 mg/ Sodium Chloride 70 ml @ 280 mls/hr 1X ONCE IV Last administered on 07/03/20at 14:42; Start 07/03/20 at 14:00; Stop 07/03/20 at 14:14; Status DC Ceftriaxone Sodium (Rocephin) 1 gm 1X ONCE IVP Last administered on 07/03/20at 14:39; Start 07/03/20 at 14:15; Stop 07/03/20 at 14:16; Status DC Azithromycin 250 ml @ 250 mls/hr 1X ONCE IV Last administered on 07/03/20at 15:03; Start 07/03/20 at 14:15; Stop 07/03/20 at 15:14; Status DC Ondansetron HCl (Zofran) 4 mg PRN Q8HRS PRN IV NAUSEA/VOMITING; Start 07/03/20 at 15:15; Stop 07/04/20 at 15:14 Morphine Sulfate (Morphine Sulfate) 4 mg PRN Q2HR PRN IV PAIN Last administered on 07/03/20at 15:49; Start 07/03/20 at 15:15; Stop 07/04/20 at 15:14 Sodium Chloride 1,000 ml @ 100 mls/hr 1X ONCE IV Last administered on 07/03/20at 17:57; Start 07/03/20 at 15:15; Stop 07/04/20 at 01:14; Status DC Levetiracetam (Keppra) 500 mg BID PO ; Start 07/03/20 at 21:30; Status Cancel Levetiracetam 500 mg/Dextrose 105 ml @ 420 mls/hr Q12HR IV Last administered on 07/04/20at 08:08; Start 07/03/20 at 22:00 Active Scripts Active Reported Milk Of Magnesia (Magnesium Hydroxide) 400 Mg/5 Ml Oral.susp 400 Mg PO PRN PRN Metoprolol Tartrate 25 Mg Tablet 12.5 Mg PO DAILY Lorazepam 2 Mg/1 Ml Oral.conc 0.5 Mg PO Q4HRS Flonase Allergy Relief (Fluticasone Propionate) 9.9 Ml [place].susp 2 Sprays NS BID Dilantin (Phenytoin Sodium Extended) 100 Mg Capsule 200 Mg PO DAILYWSUP Amlodipine Besylate 2.5 Mg Tablet 2.5 Mg PO BID Acetaminophen 325 Mg Tablet 2 Tab PO PRN Q4-6HRS PRN 24 Days Vitals/I & O Vital Sign - Last 24 Hours 07/03/20 07/03/20 07/03/20 07/03/20 10:58 11:50 12:50 13:50 Temp 99.7 99.7 Pulse 68 77 80 82 Resp 28 18 18 20 B/P (MAP) 173/78 (109) Pulse Ox 98 97 97 95 O2 Delivery Room Air 07/03/20 07/03/20 07/03/20 07/03/20 14:30 16:00 19:00 20:00 Temp 101.2 99.8 101.2 99.8 Pulse 82 70 69 Resp 20 26 20 B/P (MAP) 174/75 (108) 158/74 (102) Pulse Ox 95 94 97 O2 Delivery Room Air Room Air Room Air 07/03/20 07/04/20 07/04/20 07/04/20 23:00 03:30 07:00 08:00 Temp 98.7 99.7 98.7 99.7 Pulse 77 66 63 Resp 20 22 17 B/P (MAP) 139/67 (91) 115/68 (84) Pulse Ox 95 96 96 O2 Delivery Room Air Room Air Room Air Room Air l Intake and Output 07/03/20 07/03/20 07/04/20 15:00 23:00 07:00 Intake Total 70 ml Balance 70 ml Justicifation of Admission Dx: Justifications for Admission: Justification of Admission Dx: Yes Aspiration Pneumonia: Hemodynamic Instability ILIR YOUNG MD Jul 04, 2020 09:56
--- NOTE | 2020-07-04 10:18 | PDOC ---
[employer] PROGRESS NOTE Chief Complaint Chief Complaint Seizure disorder with breakthrough seizure Subtherapeutic Dilantin level Abnormal CXR, possible aspiration PNA Anemia CHF Hx of stroke Left hemiplegia and hemiparesis Recurrent falls History of Present Illness History of Present Illness 07/04/2020 Patient seen and examined Laying in bed in NAD Chart reviewed Discussed with RN Probable discharge to assisted in the afternoon Vitals/I&O Vitals/I&O: Vital Signs Date Time Temp Pulse Resp B/P (MAP) Pulse Ox O2 Delivery O2 Flow Rate FiO2 07/04/20 08:00 Room Air 07/04/20 07:00 99.7 63 17 115/68 (84) 96 99.7 I & O 07/03/20 07/03/20 07/04/20 15:00 23:00 07:00 Intake Total 70 ml Balance 70 ml Physical Exam General: Alert, Oriented X3, Cooperative, No acute distress Heart: Normal S1, Normal S2 Lungs: Clear Abdomen: Normal bowel sounds, Soft, No tenderness Extremities: No clubbing, No cyanosis Skin: No rashes, No significant lesion Labs Labs: Laboratory Tests Test 07/03/20 11:10 07/03/20 11:40 07/03/20 13:38 07/03/20 18:00 Urine Collection Type U cath Urine Color Yellow Urine Clarity Clear Urine pH 5.5 (<5.0-8.0) Urine Specific [place] 1.020 (1.000-1.030) Urine Protein Negative mg/dL (NEG-TRACE) Urine Glucose (UA) Negative mg/dL (NEG) Urine Ketones (Stick) Negative mg/dL (NEG) Urine Blood Moderate (NEG) Urine Nitrite Negative (NEG) Urine Bilirubin Negative (NEG) Urine Urobilinogen Dipstick 1.0 mg/dL (0.2 mg/dL) Urine Leukocyte Esterase Negative (NEG) Urine RBC >40 /HPF (0-2) Urine WBC 0 /HPF (0-4) Urine Squamous Epithelial Cells Few /LPF Urine Transitional Epithelial Cells Mod /LPF Urine Bacteria 0 /HPF (0-FEW) Urine Hyaline Casts Few /HPF Urine Mucus Marked /LPF Urine Opiates Screen Neg (NEG) Urine Methadone Screen Neg (NEG) Urine Barbiturates Neg (NEG) Urine Phencyclidine Screen Neg (NEG) Urine Amphetamine/Methamphetamine Neg (NEG) Urine Benzodiazepines Screen Neg (NEG) Urine Cocaine Screen Neg (NEG) Urine Cannabinoids Screen Neg (NEG) Urine Ethyl Alcohol Neg (NEG) White Blood Count 14.7 x10^3/uL (4.0-11.0) Red Blood Count 3.92 x10^6/uL (4.30-5.70) Hemoglobin 12.9 g/dL (13.0-17.5) Hematocrit 38.9 % (39.0-53.0) Mean Corpuscular Volume 99 fL (79-100) Mean Corpuscular Hemoglobin 33 pg (25-35) Mean Corpuscular Hemoglobin Concent 33 g/dL (31-37) Red Cell Distribution Width 13.3 % (11.5-14.5) Platelet Count 242 x10^3/uL (140-400) Neutrophils (%) (Auto) 87 % (31-73) Lymphocytes (%) (Auto) 6 % (24-48) Monocytes (%) (Auto) 7 % (0-9) Eosinophils (%) (Auto) 0 % (0-3) Basophils (%) (Auto) 0 % (0-3) Neutrophils # (Auto) 12.8 x10^3/uL (1.8-7.7) Lymphocytes # (Auto) 0.9 x10^3/uL (1.0-4.8) Monocytes # (Auto) 1.0 x10^3/uL (0.0-1.1) Eosinophils # (Auto) 0.0 x10^3/uL (0.0-0.7) Basophils # (Auto) 0.0 x10^3/uL (0.0-0.2) Segmented Neutrophils % 90 % (35-66) Lymphocytes % 4 % (24-48) Monocytes % 6 % (0-10) Platelet Estimate Adequate (ADEQUATE) Prothrombin Time 13.8 SEC (11.7-14.0) Prothromb Time International Ratio 1.1 (0.8-1.1) Activated Partial Thromboplast Time 28 SEC (24-38) Sodium Level 140 mmol/L (136-145) Potassium Level 4.7 mmol/L (3.5-5.1) Chloride Level 103 mmol/L (98-107) Carbon Dioxide Level 25 mmol/L (21-32) Anion Gap 12 (6-14) Blood Urea Nitrogen 11 mg/dL (8-26) Creatinine 1.1 mg/dL (0.7-1.3) Estimated GFR (Cockcroft-Gault) 78.7 BUN/Creatinine Ratio 10 (6-20) Glucose Level 108 mg/dL (70-99) Calcium Level 9.3 mg/dL (8.5-10.1) Magnesium Level 2.2 mg/dL (1.8-2.4) Total Bilirubin 0.7 mg/dL (0.2-1.0) Aspartate Amino Transf (AST/SGOT) 21 U/L (15-37) Alanine Aminotransferase (ALT/SGPT) 17 U/L (16-63) Alkaline Phosphatase 84 U/L (46-116) Creatine Kinase 577 U/L (39-308) Creatine Kinase MB (Mass) 1.2 ng/mL (0.0-3.6) Creatine Kinase MB Relative Index 0.2 % (0-4) Troponin I Quantitative < 0.017 ng/mL (0.000-0.055) GW-Ful-W-Type Natriuretic Peptide 703 pg/mL (0-449) Total Protein 7.5 g/dL (6.4-8.2) Albumin 3.9 g/dL (3.4-5.0) Albumin/Globulin Ratio 1.1 (1.0-1.7) Procalcitonin < 0.10 ng/mL (0.00-0.10) Phenytoin (Dilantin) Level 2.1 mcg/mL (10.0-20.0) Phenytoin Last Dose Date 07/02/20 Phenytoin Last Dose Time 2100 Lactic Acid Level 2.3 mmol/L (0.4-2.0) 2.2 mmol/L (0.4-2.0) Test 07/04/20 04:55 White Blood Count 8.5 x10^3/uL (4.0-11.0) Red Blood Count 3.41 x10^6/uL (4.30-5.70) Hemoglobin 11.4 g/dL (13.0-17.5) Hematocrit 33.4 % (39.0-53.0) Mean Corpuscular Volume 98 fL (79-100) Mean Corpuscular Hemoglobin 33 pg (25-35) Mean Corpuscular Hemoglobin Concent 34 g/dL (31-37) Red Cell Distribution Width 13.0 % (11.5-14.5) Platelet Count 209 x10^3/uL (140-400) Neutrophils (%) (Auto) 72 % (31-73) Lymphocytes (%) (Auto) 14 % (24-48) Monocytes (%) (Auto) 14 % (0-9) Eosinophils (%) (Auto) 0 % (0-3) Basophils (%) (Auto) 0 % (0-3) Neutrophils # (Auto) 6.1 x10^3/uL (1.8-7.7) Lymphocytes # (Auto) 1.2 x10^3/uL (1.0-4.8) Monocytes # (Auto) 1.2 x10^3/uL (0.0-1.1) Eosinophils # (Auto) 0.0 x10^3/uL (0.0-0.7) Basophils # (Auto) 0.0 x10^3/uL (0.0-0.2) Sodium Level 142 mmol/L (136-145) Potassium Level 3.6 mmol/L (3.5-5.1) Chloride Level 107 mmol/L (98-107) Carbon Dioxide Level 30 mmol/L (21-32) Anion Gap 5 (6-14) Blood Urea Nitrogen 9 mg/dL (8-26) Creatinine 1.2 mg/dL (0.7-1.3) Estimated GFR (Cockcroft-Gault) 71.2 BUN/Creatinine Ratio 8 (6-20) Glucose Level 116 mg/dL (70-99) Calcium Level 8.4 mg/dL (8.5-10.1) Total Bilirubin 0.9 mg/dL (0.2-1.0) Aspartate Amino Transf (AST/SGOT) 19 U/L (15-37) Alanine Aminotransferase (ALT/SGPT) 11 U/L (16-63) Alkaline Phosphatase 66 U/L (46-116) Total Protein 6.4 g/dL (6.4-8.2) Albumin 3.1 g/dL (3.4-5.0) Albumin/Globulin Ratio 0.9 (1.0-1.7) Review of Systems Review of Systems: Pertinent as per HPI, otherwise 10 point review of systems is negative Assessment and Plan Assessmemt and Plan Problems Medical Problems: (1) Bilateral pulmonary infiltrates on CXR Status: Acute (2) Person under investigation for COVID-19 Status: Acute (3) Seizure Status: Acute (4) Sepsis Status: Acute ASSESSMENT Seizure disorder with breakthrough seizure Subtherapeutic Dilantin level Abnormal CXR, possible aspiration PNA Anemia CHF Hx of stroke Left hemiplegia and hemiparesis Recurrent falls PLAN Continue current long term meds Discontinue Dilantin and switch to Keppra per neurology recommendation Appreciate subspecialist input Breathing treatments DVT ppx Full code Probable discharge to assisted this afternoon Comment Review of Relevant I have reviewed the following items bruno (where applicable) has been applied. Medications: Current Medications Medications (Trade) Dose Ordered Sig/Guerrero Route PRN Reason Start Time Stop Time Status Last Admin Dose Admin Morphine Sulfate (Morphine Sulfate) 5 mg 1X ONCE IV 07/03/20 12:00 07/03/20 12:02 DC 07/03/20 12:45 Fosphenytoin Sodium 1000 mg/ Sodium Chloride 70 ml @ 280 mls/hr 1X ONCE IV 07/03/20 14:00 07/03/20 14:14 DC 07/03/20 14:42 Ceftriaxone Sodium (Rocephin) 1 gm 1X ONCE IVP 07/03/20 14:15 07/03/20 14:16 DC 07/03/20 14:39 Azithromycin 250 ml @ 250 mls/hr 1X ONCE IV 07/03/20 14:15 07/03/20 15:14 DC 07/03/20 15:03 Morphine Sulfate (Morphine Sulfate) 4 mg PRN Q2HR PRN IV PAIN 07/03/20 15:15 07/04/20 15:14 07/03/20 15:49 Sodium Chloride 1,000 ml @ 100 mls/hr 1X ONCE IV 07/03/20 15:15 07/04/20 01:14 DC 07/03/20 17:57 Levetiracetam 500 mg/Dextrose 105 ml @ 420 mls/hr Q12HR IV 07/03/20 22:00 07/04/20 08:08 Justicifation of Admission Dx: Justifications for Admission: Justification of Admission Dx: Yes Aspiration Pneumonia: Hemodynamic Instability YOLETTE WIGGINS III DO Jul 04, 2020 10:18
[2020-07-04] MEDS ORDERED: PIP/TAZO PER PHARMACY MC PRN (10:30)
[2020-07-04 11:01] VITALS: BP 144/63
--- NOTE | 2020-07-04 11:06 | CONS ---
DATE OF CONSULTATION: PULMONARY CONSULTATION ATTENDING PHYSICIAN: Dr. Connor. REASON FOR CONSULTATION: Suspected aspiration pneumonia. HISTORY OF PRESENT ILLNESS: The patient is a 74-year-old male who is a resident of [facility]. He has history of known seizure disorder and has been on Dilantin. His Dilantin was on hold because of high levels. He came into the hospital with a new seizure. His Dilantin level was subtherapeutic. I have been asked to see him for further evaluation of his abnormal chest x-ray. The chest x-ray was reviewed. He has bibasilar atelectasis versus infiltrates. He also has a fever of 101.2. He is currently under COVID isolation and the results are pending. I have been asked to see him for further evaluation. I am unable to get much history from the patient. He does not appear to be in any obvious respiratory distress. His blood pressure is on the high side, his pulse ox is 94% on room air. PAST MEDICAL HISTORY: Significant for history of seizure disorder, history of dysphagia, history of hemiplegia and hemiparesis following a stroke affecting the left side, history of recurrent falls, history of cognitive communication deficit, history of systolic and diastolic congestive heart failure. PAST SURGICAL HISTORY: No recent surgeries. FAMILY HISTORY: Hypertension. ALLERGIES: None. SOCIAL HISTORY: Does not drink or smoke. Lives in a correction. MEDICATIONS: Reviewed as listed in the MRAD. He received azithromycin and Rocephin. ALLERGIES: ASPIRIN AND LISINOPRIL. PHYSICAL EXAMINATION: GENERAL: He is in no obvious respiratory distress. VITAL SIGNS: T-max of 101.2. Pulse ox is 96% on room air. NECK: Supple. LUNGS: With diminished breath sounds. CARDIOVASCULAR: With a regular rate. ABDOMEN: Soft, nontender. EXTREMITIES: With no pitting edema. LABORATORY DATA: Reviewed. White cell count 8.5 from 14.7, hemoglobin 11.4 and platelets are 209. BUN 9, creatinine 1.2. Chest x-ray is as discussed above. He does not have any previous echocardiogram while in the hospital. IMPRESSION: 1. The patient with history of seizure disorder, comes in with a new seizure secondary to subtherapeutic Dilantin level. 2. Suspected aspiration pneumonia from seizure. 3. Abnormal chest x-ray consistent with basal infiltrate versus atelectasis. 4. Leukocytosis, present on admission, likely reactive, but is resolved. 5. Fever, present on admission, could be related to seizure versus aspiration pneumonia. RECOMMENDATIONS: 1. We will add Zosyn. 2. P.r.n. oxygen. 3. Follow Neurology recommendations. 4. Aspiration precautions. 5. Discussed with RN. We will follow along with you. ROCIO HWANG MD DR: TRISTA/micah JOB#: [id number] / [id number]
--- NOTE | 2020-07-04 11:28 | PDOC ---
Infectious Disease Note Vital Sign Vital Signs Vital Signs Date Time Temp Pulse Resp B/P (MAP) Pulse Ox O2 Delivery O2 Flow Rate FiO2 07/04/20 11:01 99.3 70 16 144/63 (90) 94 Room Air 99.3 Labs Lab Laboratory Tests Test 07/03/20 11:40 07/03/20 13:38 07/03/20 18:00 07/04/20 04:55 White Blood Count 14.7 x10^3/uL (4.0-11.0) 8.5 x10^3/uL (4.0-11.0) Red Blood Count 3.92 x10^6/uL (4.30-5.70) 3.41 x10^6/uL (4.30-5.70) Hemoglobin 12.9 g/dL (13.0-17.5) 11.4 g/dL (13.0-17.5) Hematocrit 38.9 % (39.0-53.0) 33.4 % (39.0-53.0) Mean Corpuscular Volume 99 fL (79-100) 98 fL (79-100) Mean Corpuscular Hemoglobin 33 pg (25-35) 33 pg (25-35) Mean Corpuscular Hemoglobin Concent 33 g/dL (31-37) 34 g/dL (31-37) Red Cell Distribution Width 13.3 % (11.5-14.5) 13.0 % (11.5-14.5) Platelet Count 242 x10^3/uL (140-400) 209 x10^3/uL (140-400) Neutrophils (%) (Auto) 87 % (31-73) 72 % (31-73) Lymphocytes (%) (Auto) 6 % (24-48) 14 % (24-48) Monocytes (%) (Auto) 7 % (0-9) 14 % (0-9) Eosinophils (%) (Auto) 0 % (0-3) 0 % (0-3) Basophils (%) (Auto) 0 % (0-3) 0 % (0-3) Neutrophils # (Auto) 12.8 x10^3/uL (1.8-7.7) 6.1 x10^3/uL (1.8-7.7) Lymphocytes # (Auto) 0.9 x10^3/uL (1.0-4.8) 1.2 x10^3/uL (1.0-4.8) Monocytes # (Auto) 1.0 x10^3/uL (0.0-1.1) 1.2 x10^3/uL (0.0-1.1) Eosinophils # (Auto) 0.0 x10^3/uL (0.0-0.7) 0.0 x10^3/uL (0.0-0.7) Basophils # (Auto) 0.0 x10^3/uL (0.0-0.2) 0.0 x10^3/uL (0.0-0.2) Segmented Neutrophils % 90 % (35-66) Lymphocytes % 4 % (24-48) Monocytes % 6 % (0-10) Platelet Estimate Adequate (ADEQUATE) Prothrombin Time 13.8 SEC (11.7-14.0) Prothromb Time International Ratio 1.1 (0.8-1.1) Activated Partial Thromboplast Time 28 SEC (24-38) Sodium Level 140 mmol/L (136-145) 142 mmol/L (136-145) Potassium Level 4.7 mmol/L (3.5-5.1) 3.6 mmol/L (3.5-5.1) Chloride Level 103 mmol/L (98-107) 107 mmol/L (98-107) Carbon Dioxide Level 25 mmol/L (21-32) 30 mmol/L (21-32) Anion Gap 12 (6-14) 5 (6-14) Blood Urea Nitrogen 11 mg/dL (8-26) 9 mg/dL (8-26) Creatinine 1.1 mg/dL (0.7-1.3) 1.2 mg/dL (0.7-1.3) Estimated GFR (Cockcroft-Gault) 78.7 71.2 BUN/Creatinine Ratio 10 (6-20) 8 (6-20) Glucose Level 108 mg/dL (70-99) 116 mg/dL (70-99) Calcium Level 9.3 mg/dL (8.5-10.1) 8.4 mg/dL (8.5-10.1) Magnesium Level 2.2 mg/dL (1.8-2.4) Total Bilirubin 0.7 mg/dL (0.2-1.0) 0.9 mg/dL (0.2-1.0) Aspartate Amino Transf (AST/SGOT) 21 U/L (15-37) 19 U/L (15-37) Alanine Aminotransferase (ALT/SGPT) 17 U/L (16-63) 11 U/L (16-63) Alkaline Phosphatase 84 U/L (46-116) 66 U/L (46-116) Creatine Kinase 577 U/L (39-308) Creatine Kinase MB (Mass) 1.2 ng/mL (0.0-3.6) Creatine Kinase MB Relative Index 0.2 % (0-4) Troponin I Quantitative < 0.017 ng/mL (0.000-0.055) PP-Tfj-[id number]-Type Natriuretic Peptide 703 pg/mL (0-449) Total Protein 7.5 g/dL (6.4-8.2) 6.4 g/dL (6.4-8.2) Albumin 3.9 g/dL (3.4-5.0) 3.1 g/dL (3.4-5.0) Albumin/Globulin Ratio 1.1 (1.0-1.7) 0.9 (1.0-1.7) Procalcitonin < 0.10 ng/mL (0.00-0.10) Phenytoin (Dilantin) Level 2.1 mcg/mL (10.0-20.0) Phenytoin Last Dose Date 07/02/20 Phenytoin Last Dose Time 2100 Lactic Acid Level 2.3 mmol/L (0.4-2.0) 2.2 mmol/L (0.4-2.0) Objective Assessment Patient seen consult dictated Plan Plan of Care / DEVORAH CHIN MD Jul 04, 2020 11:28
--- NOTE | 2020-07-04 11:43 | CONS ---
DATE OF CONSULTATION: 07/04/2020 REQUESTING PHYSICIAN: Cliff Connor DO REASON FOR CONSULTATION: Aspiration pneumonia. HISTORY OF PRESENT ILLNESS: This is a 74-year-old male with fdc resident, who came in with breakthrough seizure. Apparently Dilantin level was low. The patient was suspected to have aspiration. The patient did have a fever up to 101.2. White count 14,000 and Zosyn has been started. The patient is not able to communicate too much as there is a little bit communication possible to say. The patient is feeling better, he says. No nausea, vomiting, diarrhea, chest pain, shortness of breath. PAST MEDICAL HISTORY: Positive for seizure disorder. The patient has dysphagia, CVA in the past with hemiplegia, congestive heart failure and cognitive deficit. SOCIAL HISTORY: Negative for smoking, alcohol, illicit drug use. long-term resident. ALLERGIES: No known drug allergies. CURRENT MEDICATIONS: Reviewed. REVIEW OF SYSTEMS: As per HPI, all other systems reviewed and are negative. PHYSICAL EXAMINATION: GENERAL: Awake male, not in distress. VITAL SIGNS: Stable with a T-max 101.2. HEENT: NAD. NECK: Supple, no JVP, no lymphadenopathy. LUNGS: Clear. HEART: S1, S2 regular. ABDOMEN: Soft, nontender, no organomegaly. EXTREMITIES: No edema, cyanosis. SKIN: Unremarkable. NEUROLOGIC: The patient nods and minimal communication possible. LABORATORY DATA: White count is down to 8.5 from 14.7. BUN and creatinine normal. Urinalysis unremarkable. Chest x-ray is showing bibasilar infiltrate. IMPRESSION: 1. Fever. 2. Suspected aspiration. 3. Breakthrough seizure. 4. Leukocytosis. 5. Cognitive deficit. RECOMMENDATIONS: Continue Zosyn, supportive care, soon to be able to scale down to oral antibiotics for possible discharge once fever free and oxygenation remains good. Thank you very much, Dr. Connor, for giving me the opportunity to participate in this patient's care. DEVORAH CHIN MD DR: STEFANI/micah JOB#: [id number] / [id number]
[2020-07-04] MEDS: PIPERACILLIN/TAZOBACTAM 3.375 GM in IV NORMAL SALINE 50ML 50 ML IV SCH ×2 (11:59→17:30)
[2020-07-04 14:40] VITALS: BP 147/85
--- NOTE | 2020-07-04 15:18 | EKG ---
[facility] [address] [place] [address] Test Date: 2020-07-03 Test Time: 10:58:28 Pat Name: TERRENCE HAMMOND Department: Room: Gender: M Employment Advisor: : 1945 Requested By: BENJAMIN CURRIE Order Number: [id number] Reading MD: Measurements Intervals [place] Rate: 71 P: 29 DE: 172 QRS: -20 QRSD: 78 T: 38 QT: 390 QTc: 424 Interpretive Statements SINUS RHYTHM VENTRICULAR PREMATURE COMPLEX(ES) LEFTWARD AXIS ABNORMAL ECG RI6.01 No previous ECG available for comparison
--- NOTE | 2020-07-04 15:42 | NUR ---
SW following. Spoke with RN and reviewed chart. Pt resides in LTC at [facility], , (fax) and will likely need SNU orders on discharge. PT to evaluate. Pt on room air. Pt on IV Zosyn and IV Dextrose. Pt's Gil also resides at [facility] ([phone]). JES coordinated care with James beaver [place]. Addendum: 07/04/20 at 1555 by JOVANNA ANDRE COVID negative. Pt ok to return to [facility] when stable.
--- NOTE | 2020-07-04 16:26 | NUR ---
no need to reswab for COVID per Dr. Cheung
[2020-07-04 20:10] VITALS: BP 145/72
--- NOTE | 2020-07-04 20:10 | NUR ---
During transfers from 6 floor to 5 floor room 508, THONY Lux reported that Patient's new IV site accidentally came out, this nurse went in to attempt to start a new IV attempted x3 unable to, THONY Anglin attempted x2, THONY Wright attempted x2, resident care supervisor THONY Rouse Finally was able to get a 22g in Rt. FA after two attempt. Patient was very patient and tolerated well. IV medication administered.
[2020-07-04 23:00] VITALS: BP 147/83
[2020-07-05] MEDS: levETIRAcetam 500 MG in IV DEXTROSE 5% 100ML 100 ML IV SCH ×2 (01:14→09:13)
[2020-07-05] MEDS: PIPERACILLIN/TAZOBACTAM 3.375 GM in IV NORMAL SALINE 50ML 50 ML IV SCH ×2 (01:15→05:15)
[2020-07-05 02:43] VITALS: BP 131/53
[2020-07-05 07:00] VITALS: BP 152/77
--- NOTE | 2020-07-05 09:42 | PDOC ---
PROGRESS NOTES Assessment Problems Medical Problems: (1) Bilateral pulmonary infiltrates on CXR Status: Acute (2) Person under investigation for COVID-19 Status: Acute (3) Seizure Status: Acute (4) Sepsis Status: Acute History of multiple strokes, multi-infarct dementia, jail patient. Epilepsy, breakthrough seizure Apparently he previously had Dilantin toxicity, it was held, but not resumed. Aspiration pneumonia, possible Plan Have switched Dilantin to Keppra Okay for discharge any time Follow-up with neurology as needed. Subjective none Objective Vital Signs Date Time Temp Pulse Resp B/P (MAP) Pulse Ox O2 Delivery O2 Flow Rate FiO2 07/05/20 07:00 97.7 42 16 152/77 (102) 96 Room Air 97.7 Intake and Output 07/05/20 07:00 Intake Total 0 ml Balance 0 ml Intake Oral 0 ml # Voids 6 PHYSICAL EXAM Alert. Oriented only to person. PERRL. EOMI. CN: left central facial weakness. Muscle tone: Increased on left. Muscle strength: 4/5 DTR: 1+ Plantar reflex: flexor Gait: not examined in bed. Sensory exam: no abnormal findings. Cerebellar: poorly cooperative Review of Relevant I have reviewed the following items bruno (where applicable) has been applied. Labs Laboratory Tests Test 07/03/20 11:10 07/03/20 11:40 07/03/20 13:38 07/03/20 14:45 Urine Collection Type U cath Urine Color Yellow Urine Clarity Clear Urine pH 5.5 (<5.0-8.0) Urine Specific [place] 1.020 (1.000-1.030) Urine Protein Negative mg/dL (NEG-TRACE) Urine Glucose (UA) Negative mg/dL (NEG) Urine Ketones (Stick) Negative mg/dL (NEG) Urine Blood Moderate (NEG) Urine Nitrite Negative (NEG) Urine Bilirubin Negative (NEG) Urine Urobilinogen Dipstick 1.0 mg/dL (0.2 mg/dL) Urine Leukocyte Esterase Negative (NEG) Urine RBC >40 /HPF (0-2) Urine WBC 0 /HPF (0-4) Urine Squamous Epithelial Cells Few /LPF Urine Transitional Epithelial Cells Mod /LPF Urine Bacteria 0 /HPF (0-FEW) Urine Hyaline Casts Few /HPF Urine Mucus Marked /LPF Urine Opiates Screen Neg (NEG) Urine Methadone Screen Neg (NEG) Urine Barbiturates Neg (NEG) Urine Phencyclidine Screen Neg (NEG) Urine Amphetamine/Methamphetamine Neg (NEG) Urine Benzodiazepines Screen Neg (NEG) Urine Cocaine Screen Neg (NEG) Urine Cannabinoids Screen Neg (NEG) Urine Ethyl Alcohol Neg (NEG) White Blood Count 14.7 x10^3/uL (4.0-11.0) Red Blood Count 3.92 x10^6/uL (4.30-5.70) Hemoglobin 12.9 g/dL (13.0-17.5) Hematocrit 38.9 % (39.0-53.0) Mean Corpuscular Volume 99 fL (79-100) Mean Corpuscular Hemoglobin 33 pg (25-35) Mean Corpuscular Hemoglobin Concent 33 g/dL (31-37) Red Cell Distribution Width 13.3 % (11.5-14.5) Platelet Count 242 x10^3/uL (140-400) Neutrophils (%) (Auto) 87 % (31-73) Lymphocytes (%) (Auto) 6 % (24-48) Monocytes (%) (Auto) 7 % (0-9) Eosinophils (%) (Auto) 0 % (0-3) Basophils (%) (Auto) 0 % (0-3) Neutrophils # (Auto) 12.8 x10^3/uL (1.8-7.7) Lymphocytes # (Auto) 0.9 x10^3/uL (1.0-4.8) Monocytes # (Auto) 1.0 x10^3/uL (0.0-1.1) Eosinophils # (Auto) 0.0 x10^3/uL (0.0-0.7) Basophils # (Auto) 0.0 x10^3/uL (0.0-0.2) Segmented Neutrophils % 90 % (35-66) Lymphocytes % 4 % (24-48) Monocytes % 6 % (0-10) Platelet Estimate Adequate (ADEQUATE) Prothrombin Time 13.8 SEC (11.7-14.0) Prothromb Time International Ratio 1.1 (0.8-1.1) Activated Partial Thromboplast Time 28 SEC (24-38) Sodium Level 140 mmol/L (136-145) Potassium Level 4.7 mmol/L (3.5-5.1) Chloride Level 103 mmol/L (98-107) Carbon Dioxide Level 25 mmol/L (21-32) Anion Gap 12 (6-14) Blood Urea Nitrogen 11 mg/dL (8-26) Creatinine 1.1 mg/dL (0.7-1.3) Estimated GFR (Cockcroft-Gault) 78.7 BUN/Creatinine Ratio 10 (6-20) Glucose Level 108 mg/dL (70-99) Calcium Level 9.3 mg/dL (8.5-10.1) Magnesium Level 2.2 mg/dL (1.8-2.4) Total Bilirubin 0.7 mg/dL (0.2-1.0) Aspartate Amino Transf (AST/SGOT) 21 U/L (15-37) Alanine Aminotransferase (ALT/SGPT) 17 U/L (16-63) Alkaline Phosphatase 84 U/L (46-116) Creatine Kinase 577 U/L (39-308) Creatine Kinase MB (Mass) 1.2 ng/mL (0.0-3.6) Creatine Kinase MB Relative Index 0.2 % (0-4) Troponin I Quantitative < 0.017 ng/mL (0.000-0.055) BE-Ppa-U-Type Natriuretic Peptide 703 pg/mL (0-449) Total Protein 7.5 g/dL (6.4-8.2) Albumin 3.9 g/dL (3.4-5.0) Albumin/Globulin Ratio 1.1 (1.0-1.7) Procalcitonin < 0.10 ng/mL (0.00-0.10) Phenytoin (Dilantin) Level 2.1 mcg/mL (10.0-20.0) Phenytoin Last Dose Date 07/02/20 Phenytoin Last Dose Time 2100 Lactic Acid Level 2.3 mmol/L (0.4-2.0) Coronavirus (PCR) Not detected (Not Detected) Test 07/03/20 18:00 07/04/20 04:55 Lactic Acid Level 2.2 mmol/L (0.4-2.0) White Blood Count 8.5 x10^3/uL (4.0-11.0) Red Blood Count 3.41 x10^6/uL (4.30-5.70) Hemoglobin 11.4 g/dL (13.0-17.5) Hematocrit 33.4 % (39.0-53.0) Mean Corpuscular Volume 98 fL (79-100) Mean Corpuscular Hemoglobin 33 pg (25-35) Mean Corpuscular Hemoglobin Concent 34 g/dL (31-37) Red Cell Distribution Width 13.0 % (11.5-14.5) Platelet Count 209 x10^3/uL (140-400) Neutrophils (%) (Auto) 72 % (31-73) Lymphocytes (%) (Auto) 14 % (24-48) Monocytes (%) (Auto) 14 % (0-9) Eosinophils (%) (Auto) 0 % (0-3) Basophils (%) (Auto) 0 % (0-3) Neutrophils # (Auto) 6.1 x10^3/uL (1.8-7.7) Lymphocytes # (Auto) 1.2 x10^3/uL (1.0-4.8) Monocytes # (Auto) 1.2 x10^3/uL (0.0-1.1) Eosinophils # (Auto) 0.0 x10^3/uL (0.0-0.7) Basophils # (Auto) 0.0 x10^3/uL (0.0-0.2) Sodium Level 142 mmol/L (136-145) Potassium Level 3.6 mmol/L (3.5-5.1) Chloride Level 107 mmol/L (98-107) Carbon Dioxide Level 30 mmol/L (21-32) Anion Gap 5 (6-14) Blood Urea Nitrogen 9 mg/dL (8-26) Creatinine 1.2 mg/dL (0.7-1.3) Estimated GFR (Cockcroft-Gault) 71.2 BUN/Creatinine Ratio 8 (6-20) Glucose Level 116 mg/dL (70-99) Calcium Level 8.4 mg/dL (8.5-10.1) Total Bilirubin 0.9 mg/dL (0.2-1.0) Aspartate Amino Transf (AST/SGOT) 19 U/L (15-37) Alanine Aminotransferase (ALT/SGPT) 11 U/L (16-63) Alkaline Phosphatase 66 U/L (46-116) Total Protein 6.4 g/dL (6.4-8.2) Albumin 3.1 g/dL (3.4-5.0) Albumin/Globulin Ratio 0.9 (1.0-1.7) Microbiology 07/03/20 Blood Culture - Preliminary, Resulted NO GROWTH AFTER 1 DAY Medications Current Medications Morphine Sulfate (Morphine Sulfate) 5 mg 1X ONCE IV Last administered on 07/03/20at 12:45; Start 07/03/20 at 12:00; Stop 07/03/20 at 12:02; Status DC Fosphenytoin Sodium 1000 mg/ Sodium Chloride 70 ml @ 280 mls/hr 1X ONCE IV Last administered on 07/03/20at 14:42; Start 07/03/20 at 14:00; Stop 07/03/20 at 14:14; Status DC Ceftriaxone Sodium (Rocephin) 1 gm 1X ONCE IVP Last administered on 07/03/20at 14:39; Start 07/03/20 at 14:15; Stop 07/03/20 at 14:16; Status DC Azithromycin 250 ml @ 250 mls/hr 1X ONCE IV Last administered on 07/03/20at 15:03; Start 07/03/20 at 14:15; Stop 07/03/20 at 15:14; Status DC Ondansetron HCl (Zofran) 4 mg PRN Q8HRS PRN IV NAUSEA/VOMITING; Start 07/03/20 at 15:15; Stop 07/04/20 at 15:14; Status DC Morphine Sulfate (Morphine Sulfate) 4 mg PRN Q2HR PRN IV PAIN Last administered on 07/03/20at 15:49; Start 07/03/20 at 15:15; Stop 07/04/20 at 15:14; Status DC Sodium Chloride 1,000 ml @ 100 mls/hr 1X ONCE IV Last administered on 07/03/20at 17:57; Start 07/03/20 at 15:15; Stop 07/04/20 at 01:14; Status DC Levetiracetam (Keppra) 500 mg BID PO ; Start 07/03/20 at 21:30; Status Cancel Levetiracetam 500 mg/Dextrose 105 ml @ 420 mls/hr Q12HR IV Last administered on 07/05/20at 09:13; Start 07/03/20 at 22:00 Piperacillin Sod/ Tazobactam Sod (Zosyn Per Pharmacy) 1 each PRN DAILY PRN MC S EE COMMENTS; Start 07/04/20 at 10:30 Piperacillin Sod/ Tazobactam Sod 3.375 gm/Sodium Chloride 50 ml @ 100 mls/hr Q6HRS IV Last administered on 07/05/20at 05:15; Start 07/04/20 at 11:00 Active Scripts Active Reported Milk Of Magnesia (Magnesium Hydroxide) 400 Mg/5 Ml Oral.susp 400 Mg PO PRN PRN Metoprolol Tartrate 25 Mg Tablet 12.5 Mg PO DAILY Lorazepam 2 Mg/1 Ml Oral.conc 0.5 Mg PO Q4HRS Flonase Allergy Relief (Fluticasone Propionate) 9.9 Ml [place].susp 2 Sprays NS BID Dilantin (Phenytoin Sodium Extended) 100 Mg Capsule 200 Mg PO DAILYWSUP Amlodipine Besylate 2.5 Mg Tablet 2.5 Mg PO BID Acetaminophen 325 Mg Tablet 2 Tab PO PRN Q4-6HRS PRN 24 Days Vitals/I & O Vital Sign - Last 24 Hours 07/04/20 07/04/20 07/04/20 07/04/20 11:01 14:40 20:05 20:10 Temp 99.3 99.8 98.6 99.3 99.8 98.6 Pulse 70 79 57 Resp 16 18 18 B/P (MAP) 144/63 (90) 147/85 (105) 145/72 (96) Pulse Ox 94 98 93 O2 Delivery Room Air Room Air Room Air 07/04/20 07/05/20 07/05/20 23:00 02:43 07:00 Temp 98.7 99.0 97.7 98.7 99.0 97.7 Pulse 85 89 42 Resp 18 20 16 B/P (MAP) 147/83 (104) 131/53 (79) 152/77 (102) Pulse Ox 94 96 96 O2 Delivery Room Air Room Air Intake and Output 07/04/20 07/04/20 07/05/20 15:00 23:00 07:00 Intake Total 0 ml 0 ml Balance 0 ml 0 ml Justicifation of Admission Dx: Justifications for Admission: Justification of Admission Dx: Yes Aspiration Pneumonia: Hemodynamic Instability ILIR YOUNG MD Jul 05, 2020 09:42
--- NOTE | 2020-07-05 10:03 | PDOC ---
Infectious Disease Note Subjective Subjective pt is without any more seizures, no complaints ROS ROS no n/v/d/sob/fever Vital Sign Vital Signs Vital Signs Date Time Temp Pulse Resp B/P (MAP) Pulse Ox O2 Delivery O2 Flow Rate FiO2 07/05/20 07:00 97.7 42 16 152/77 (102) 96 Room Air 97.7 Physical Exam PHYSICAL EXAM GENERAL: Awake male, not in distress. VITAL SIGNS: Stable HEENT: NAD. NECK: Supple, no JVP, no lymphadenopathy. LUNGS: Clear. HEART: S1, S2 regular. ABDOMEN: Soft, nontender, no organomegaly. EXTREMITIES: No edema, cyanosis. SKIN: Unremarkable. NEUROLOGIC: The patient nods and minimal communication possible. Labs Micro Microbiology 07/03/20 Blood Culture - Preliminary, Resulted NO GROWTH AFTER 1 DAY Objective Assessment IMPRESSION: 1. Fever. 2. Suspected aspiration. 3. Breakthrough seizure. 4. Leukocytosis. 5. Cognitive deficit. Plan Plan of Care cont iv antibiotics if allowed to eat and drink then change to po antibiotics DEVORAH CHIN MD Jul 05, 2020 10:03
--- NOTE | 2020-07-05 10:04 | PDOC ---
PULMONARY PROGRESS NOTES DATE: 07/05/20 TIME: 10:00 Patirnt is sitting EOB, no overnight concerns NO CP, no SOA or cough remains on R/A Vitals Vital Signs Date Time Temp Pulse Resp B/P (MAP) Pulse Ox O2 Delivery O2 Flow Rate FiO2 07/05/20 07:00 97.7 42 16 152/77 (102) 96 Room Air 97.7 ROS: No Nausea, No Chest Pain, No Abdominal Pain, No Increase Cough General: Alert, Confused Lungs: Clear Cardiovascular: S1, S2 Abdomen: Soft, Non-tender Neuro Exam: Alert Extremities: No Edema Skin: Warm Labs Laboratory Tests Test 07/03/20 11:10 07/03/20 11:40 07/03/20 13:38 07/03/20 14:45 Urine Collection Type U cath Urine Color Yellow Urine Clarity Clear Urine pH 5.5 (<5.0-8.0) Urine Specific [place] 1.020 (1.000-1.030) Urine Protein Negative mg/dL (NEG-TRACE) Urine Glucose (UA) Negative mg/dL (NEG) Urine Ketones (Stick) Negative mg/dL (NEG) Urine Blood Moderate (NEG) Urine Nitrite Negative (NEG) Urine Bilirubin Negative (NEG) Urine Urobilinogen Dipstick 1.0 mg/dL (0.2 mg/dL) Urine Leukocyte Esterase Negative (NEG) Urine RBC >40 /HPF (0-2) Urine WBC 0 /HPF (0-4) Urine Squamous Epithelial Cells Few /LPF Urine Transitional Epithelial Cells Mod /LPF Urine Bacteria 0 /HPF (0-FEW) Urine Hyaline Casts Few /HPF Urine Mucus Marked /LPF Urine Opiates Screen Neg (NEG) Urine Methadone Screen Neg (NEG) Urine Barbiturates Neg (NEG) Urine Phencyclidine Screen Neg (NEG) Urine Amphetamine/Methamphetamine Neg (NEG) Urine Benzodiazepines Screen Neg (NEG) Urine Cocaine Screen Neg (NEG) Urine Cannabinoids Screen Neg (NEG) Urine Ethyl Alcohol Neg (NEG) White Blood Count 14.7 x10^3/uL (4.0-11.0) Red Blood Count 3.92 x10^6/uL (4.30-5.70) Hemoglobin 12.9 g/dL (13.0-17.5) Hematocrit 38.9 % (39.0-53.0) Mean Corpuscular Volume 99 fL (79-100) Mean Corpuscular Hemoglobin 33 pg (25-35) Mean Corpuscular Hemoglobin Concent 33 g/dL (31-37) Red Cell Distribution Width 13.3 % (11.5-14.5) Platelet Count 242 x10^3/uL (140-400) Neutrophils (%) (Auto) 87 % (31-73) Lymphocytes (%) (Auto) 6 % (24-48) Monocytes (%) (Auto) 7 % (0-9) Eosinophils (%) (Auto) 0 % (0-3) Basophils (%) (Auto) 0 % (0-3) Neutrophils # (Auto) 12.8 x10^3/uL (1.8-7.7) Lymphocytes # (Auto) 0.9 x10^3/uL (1.0-4.8) Monocytes # (Auto) 1.0 x10^3/uL (0.0-1.1) Eosinophils # (Auto) 0.0 x10^3/uL (0.0-0.7) Basophils # (Auto) 0.0 x10^3/uL (0.0-0.2) Segmented Neutrophils % 90 % (35-66) Lymphocytes % 4 % (24-48) Monocytes % 6 % (0-10) Platelet Estimate Adequate (ADEQUATE) Prothrombin Time 13.8 SEC (11.7-14.0) Prothromb Time International Ratio 1.1 (0.8-1.1) Activated Partial Thromboplast Time 28 SEC (24-38) Sodium Level 140 mmol/L (136-145) Potassium Level 4.7 mmol/L (3.5-5.1) Chloride Level 103 mmol/L (98-107) Carbon Dioxide Level 25 mmol/L (21-32) Anion Gap 12 (6-14) Blood Urea Nitrogen 11 mg/dL (8-26) Creatinine 1.1 mg/dL (0.7-1.3) Estimated GFR (Cockcroft-Gault) 78.7 BUN/Creatinine Ratio 10 (6-20) Glucose Level 108 mg/dL (70-99) Calcium Level 9.3 mg/dL (8.5-10.1) Magnesium Level 2.2 mg/dL (1.8-2.4) Total Bilirubin 0.7 mg/dL (0.2-1.0) Aspartate Amino Transf (AST/SGOT) 21 U/L (15-37) Alanine Aminotransferase (ALT/SGPT) 17 U/L (16-63) Alkaline Phosphatase 84 U/L (46-116) Creatine Kinase 577 U/L (39-308) Creatine Kinase MB (Mass) 1.2 ng/mL (0.0-3.6) Creatine Kinase MB Relative Index 0.2 % (0-4) Troponin I Quantitative < 0.017 ng/mL (0.000-0.055) RO-Gsv-Y-Type Natriuretic Peptide 703 pg/mL (0-449) Total Protein 7.5 g/dL (6.4-8.2) Albumin 3.9 g/dL (3.4-5.0) Albumin/Globulin Ratio 1.1 (1.0-1.7) Procalcitonin < 0.10 ng/mL (0.00-0.10) Phenytoin (Dilantin) Level 2.1 mcg/mL (10.0-20.0) Phenytoin Last Dose Date 07/02/20 Phenytoin Last Dose Time 2100 Lactic Acid Level 2.3 mmol/L (0.4-2.0) Coronavirus (PCR) Not detected (Not Detected) Test 07/03/20 18:00 07/04/20 04:55 Lactic Acid Level 2.2 mmol/L (0.4-2.0) White Blood Count 8.5 x10^3/uL (4.0-11.0) Red Blood Count 3.41 x10^6/uL (4.30-5.70) Hemoglobin 11.4 g/dL (13.0-17.5) Hematocrit 33.4 % (39.0-53.0) Mean Corpuscular Volume 98 fL (79-100) Mean Corpuscular Hemoglobin 33 pg (25-35) Mean Corpuscular Hemoglobin Concent 34 g/dL (31-37) Red Cell Distribution Width 13.0 % (11.5-14.5) Platelet Count 209 x10^3/uL (140-400) Neutrophils (%) (Auto) 72 % (31-73) Lymphocytes (%) (Auto) 14 % (24-48) Monocytes (%) (Auto) 14 % (0-9) Eosinophils (%) (Auto) 0 % (0-3) Basophils (%) (Auto) 0 % (0-3) Neutrophils # (Auto) 6.1 x10^3/uL (1.8-7.7) Lymphocytes # (Auto) 1.2 x10^3/uL (1.0-4.8) Monocytes # (Auto) 1.2 x10^3/uL (0.0-1.1) Eosinophils # (Auto) 0.0 x10^3/uL (0.0-0.7) Basophils # (Auto) 0.0 x10^3/uL (0.0-0.2) Sodium Level 142 mmol/L (136-145) Potassium Level 3.6 mmol/L (3.5-5.1) Chloride Level 107 mmol/L (98-107) Carbon Dioxide Level 30 mmol/L (21-32) Anion Gap 5 (6-14) Blood Urea Nitrogen 9 mg/dL (8-26) Creatinine 1.2 mg/dL (0.7-1.3) Estimated GFR (Cockcroft-Gault) 71.2 BUN/Creatinine Ratio 8 (6-20) Glucose Level 116 mg/dL (70-99) Calcium Level 8.4 mg/dL (8.5-10.1) Total Bilirubin 0.9 mg/dL (0.2-1.0) Aspartate Amino Transf (AST/SGOT) 19 U/L (15-37) Alanine Aminotransferase (ALT/SGPT) 11 U/L (16-63) Alkaline Phosphatase 66 U/L (46-116) Total Protein 6.4 g/dL (6.4-8.2) Albumin 3.1 g/dL (3.4-5.0) Albumin/Globulin Ratio 0.9 (1.0-1.7) Medications Active Scripts Medications Dose Route/Sig Max Daily Dose Days Date Category Milk Of Magnesia (Magnesium Hydroxide) 400 Mg/5 Ml Oral.susp 400 Mg PO PRN PRN 07/03/20 Reported Metoprolol Tartrate 25 Mg Tablet 12.5 Mg PO DAILY 07/03/20 Reported Lorazepam 2 Mg/1 Ml Oral.conc 0.5 Mg PO Q4HRS 07/03/20 Reported Flonase Allergy Relief (Fluticasone Propionate) 9.9 Ml [place].susp 2 Sprays NS BID 07/03/20 Reported Dilantin (Phenytoin Sodium Extended) 100 Mg Capsule 200 Mg PO DAILYWSUP 07/03/20 Reported Amlodipine Besylate 2.5 Mg Tablet 2.5 Mg PO BID 07/03/20 Reported Acetaminophen 325 Mg Tablet 2 Tab PO PRN Q4-6HRS PRN 24 07/03/20 Reported Impression . IMPRESSION: 1. The patient with history of seizure disorder, comes in with a new seizure secondary to subtherapeutic Dilantin level-- no further seizure activity 2. Suspected aspiration pneumonia from seizure. 3. Abnormal chest x-ray consistent with basal infiltrate versus atelectasis. 4. Leukocytosis, present on admission, likely reactive, but is resolved. 5. Fever, present on admission, could be related to seizure versus aspiration pneumonia--- resolved Plan . RECOMMENDATIONS: Change IV ABX to po, follow ID recs Follow Neurology recommendations. Aspiration precautions. PT/OT Ok to D/C from our standpoint Discussed with THONY. ROCIO HWANG MD Jul 05, 2020 10:04
[2020-07-05 10:35] VITALS: BP 150/78
[2020-07-05] MEDS ORDERED: BARIUM SULFATE 40% (APPLE) 148 GM PWD. PO ONE (11:15)
--- NOTE | 2020-07-05 11:37 | PDOC ---
PROGRESS NOTES Date of Service: DATE: 07/05/20 TIME: 11:37 Chief Complaint Chief Complaint impression 07/05/20 Seizure disorder with breakthrough seizure Subtherapeutic Dilantin level Abnormal CXR, possible aspiration PNA Anemia CHF Hx of stroke Left hemiplegia and hemiparesis Recurrent falls Have switched Dilantin to Keppra Okay for discharge any time if videoswallow ok ST concerned re high aspiration risk History of Present Illness History of Present Illness 07/05/2020 Patient seen and examined NAD Chart reviewed Discussed with RN Probable discharge to [facility] if videoswallow ok today Vitals Vitals Vital Signs Date Time Temp Pulse Resp B/P (MAP) Pulse Ox O2 Delivery O2 Flow Rate FiO2 07/05/20 10:35 97.8 44 16 150/78 (102) 96 Room Air 97.8 Physical Exam Physical Exam GENERAL: Awake male, not in distress. VITAL SIGNS: Stable with a T-max 101.2. HEENT: NAD. NECK: Supple, no JVP, no lymphadenopathy. LUNGS: Clear. HEART: S1, S2 regular. ABDOMEN: Soft, nontender, no organomegaly. EXTREMITIES: No edema, cyanosis. SKIN: Unremarkable. NEUROLOGIC: The patient nods and minimal communication possible. General: Alert, Oriented X3, Cooperative, No acute distress Heart: Normal S1, Normal S2 Lungs: Clear Abdomen: Normal bowel sounds, Soft, No tenderness Extremities: No clubbing, No cyanosis Skin: No rashes, No significant lesion Assessment and Plan Assessmemt and Plan Problems Medical Problems: (1) Bilateral pulmonary infiltrates on CXR Status: Acute (2) Person under investigation for COVID-19 Status: Acute (3) Seizure Status: Acute (4) Sepsis Status: Acute Comment Review of Relevant I have reviewed the following items bruno (where applicable) has been applied. Labs Laboratory Tests Test 07/03/20 11:40 07/03/20 13:38 07/03/20 14:45 07/03/20 18:00 White Blood Count 14.7 x10^3/uL (4.0-11.0) Red Blood Count 3.92 x10^6/uL (4.30-5.70) Hemoglobin 12.9 g/dL (13.0-17.5) Hematocrit 38.9 % (39.0-53.0) Mean Corpuscular Volume 99 fL (79-100) Mean Corpuscular Hemoglobin 33 pg (25-35) Mean Corpuscular Hemoglobin Concent 33 g/dL (31-37) Red Cell Distribution Width 13.3 % (11.5-14.5) Platelet Count 242 x10^3/uL (140-400) Neutrophils (%) (Auto) 87 % (31-73) Lymphocytes (%) (Auto) 6 % (24-48) Monocytes (%) (Auto) 7 % (0-9) Eosinophils (%) (Auto) 0 % (0-3) Basophils (%) (Auto) 0 % (0-3) Neutrophils # (Auto) 12.8 x10^3/uL (1.8-7.7) Lymphocytes # (Auto) 0.9 x10^3/uL (1.0-4.8) Monocytes # (Auto) 1.0 x10^3/uL (0.0-1.1) Eosinophils # (Auto) 0.0 x10^3/uL (0.0-0.7) Basophils # (Auto) 0.0 x10^3/uL (0.0-0.2) Segmented Neutrophils % 90 % (35-66) Lymphocytes % 4 % (24-48) Monocytes % 6 % (0-10) Platelet Estimate Adequate (ADEQUATE) Prothrombin Time 13.8 SEC (11.7-14.0) Prothromb Time International Ratio 1.1 (0.8-1.1) Activated Partial Thromboplast Time 28 SEC (24-38) Sodium Level 140 mmol/L (136-145) Potassium Level 4.7 mmol/L (3.5-5.1) Chloride Level 103 mmol/L (98-107) Carbon Dioxide Level 25 mmol/L (21-32) Anion Gap 12 (6-14) Blood Urea Nitrogen 11 mg/dL (8-26) Creatinine 1.1 mg/dL (0.7-1.3) Estimated GFR (Cockcroft-Gault) 78.7 BUN/Creatinine Ratio 10 (6-20) Glucose Level 108 mg/dL (70-99) Calcium Level 9.3 mg/dL (8.5-10.1) Magnesium Level 2.2 mg/dL (1.8-2.4) Total Bilirubin 0.7 mg/dL (0.2-1.0) Aspartate Amino Transf (AST/SGOT) 21 U/L (15-37) Alanine Aminotransferase (ALT/SGPT) 17 U/L (16-63) Alkaline Phosphatase 84 U/L (46-116) Creatine Kinase 577 U/L (39-308) Creatine Kinase MB (Mass) 1.2 ng/mL (0.0-3.6) Creatine Kinase MB Relative Index 0.2 % (0-4) Troponin I Quantitative < 0.017 ng/mL (0.000-0.055) QQ-Pht-A-Type Natriuretic Peptide 703 pg/mL (0-449) Total Protein 7.5 g/dL (6.4-8.2) Albumin 3.9 g/dL (3.4-5.0) Albumin/Globulin Ratio 1.1 (1.0-1.7) Procalcitonin < 0.10 ng/mL (0.00-0.10) Phenytoin (Dilantin) Level 2.1 mcg/mL (10.0-20.0) Phenytoin Last Dose Date 07/02/20 Phenytoin Last Dose Time 2100 Lactic Acid Level 2.3 mmol/L (0.4-2.0) 2.2 mmol/L (0.4-2.0) Coronavirus (PCR) Not detected (Not Detected) Test 07/04/20 04:55 White Blood Count 8.5 x10^3/uL (4.0-11.0) Red Blood Count 3.41 x10^6/uL (4.30-5.70) Hemoglobin 11.4 g/dL (13.0-17.5) Hematocrit 33.4 % (39.0-53.0) Mean Corpuscular Volume 98 fL (79-100) Mean Corpuscular Hemoglobin 33 pg (25-35) Mean Corpuscular Hemoglobin Concent 34 g/dL (31-37) Red Cell Distribution Width 13.0 % (11.5-14.5) Platelet Count 209 x10^3/uL (140-400) Neutrophils (%) (Auto) 72 % (31-73) Lymphocytes (%) (Auto) 14 % (24-48) Monocytes (%) (Auto) 14 % (0-9) Eosinophils (%) (Auto) 0 % (0-3) Basophils (%) (Auto) 0 % (0-3) Neutrophils # (Auto) 6.1 x10^3/uL (1.8-7.7) Lymphocytes # (Auto) 1.2 x10^3/uL (1.0-4.8) Monocytes # (Auto) 1.2 x10^3/uL (0.0-1.1) Eosinophils # (Auto) 0.0 x10^3/uL (0.0-0.7) Basophils # (Auto) 0.0 x10^3/uL (0.0-0.2) Sodium Level 142 mmol/L (136-145) Potassium Level 3.6 mmol/L (3.5-5.1) Chloride Level 107 mmol/L (98-107) Carbon Dioxide Level 30 mmol/L (21-32) Anion Gap 5 (6-14) Blood Urea Nitrogen 9 mg/dL (8-26) Creatinine 1.2 mg/dL (0.7-1.3) Estimated GFR (Cockcroft-Gault) 71.2 BUN/Creatinine Ratio 8 (6-20) Glucose Level 116 mg/dL (70-99) Calcium Level 8.4 mg/dL (8.5-10.1) Total Bilirubin 0.9 mg/dL (0.2-1.0) Aspartate Amino Transf (AST/SGOT) 19 U/L (15-37) Alanine Aminotransferase (ALT/SGPT) 11 U/L (16-63) Alkaline Phosphatase 66 U/L (46-116) Total Protein 6.4 g/dL (6.4-8.2) Albumin 3.1 g/dL (3.4-5.0) Albumin/Globulin Ratio 0.9 (1.0-1.7) Microbiology 07/03/20 Blood Culture - Preliminary, Resulted NO GROWTH AFTER 1 DAY Medications Current Medications Morphine Sulfate (Morphine Sulfate) 5 mg 1X ONCE IV Last administered on 07/03/20at 12:45; Start 07/03/20 at 12:00; Stop 07/03/20 at 12:02; Status DC Fosphenytoin Sodium 1000 mg/ Sodium Chloride 70 ml @ 280 mls/hr 1X ONCE IV Last administered on 07/03/20at 14:42; Start 07/03/20 at 14:00; Stop 07/03/20 at 14:14; Status DC Ceftriaxone Sodium (Rocephin) 1 gm 1X ONCE IVP Last administered on 07/03/20at 14:39; Start 07/03/20 at 14:15; Stop 07/03/20 at 14:16; Status DC Azithromycin 250 ml @ 250 mls/hr 1X ONCE IV Last administered on 07/03/20at 15:03; Start 07/03/20 at 14:15; Stop 07/03/20 at 15:14; Status DC Ondansetron HCl (Zofran) 4 mg PRN Q8HRS PRN IV NAUSEA/VOMITING; Start 07/03/20 at 15:15; Stop 07/04/20 at 15:14; Status DC Morphine Sulfate (Morphine Sulfate) 4 mg PRN Q2HR PRN IV PAIN Last administered on 07/03/20at 15:49; Start 07/03/20 at 15:15; Stop 07/04/20 at 15:14; Status DC Sodium Chloride 1,000 ml @ 100 mls/hr 1X ONCE IV Last administered on 07/03/20at 17:57; Start 07/03/20 at 15:15; Stop 07/04/20 at 01:14; Status DC Levetiracetam (Keppra) 500 mg BID PO ; Start 07/03/20 at 21:30; Status Cancel Levetiracetam 500 mg/Dextrose 105 ml @ 420 mls/hr Q12HR IV Last administered on 07/05/20at 09:13; Start 07/03/20 at 22:00 Piperacillin Sod/ Tazobactam Sod (Zosyn Per Pharmacy) 1 each PRN DAILY PRN [facility] SEE COMMENTS; Start 07/04/20 at 10:30; Stop 07/05/20 at 10:01; Status DC Piperacillin Sod/ Tazobactam Sod 3.375 gm/Sodium Chloride 50 ml @ 100 mls/hr Q6HRS IV Last administered on 07/05/20at 05:15; Start 07/04/20 at 11:00; Stop 07/05/20 at 10:01; Status DC Amoxicillin/ Clavulanate Potassium (Augmentin 875/ 125mg) 1 tab BID PO ; Start 07/05/20 at 21:00 Barium Sulfate (Varibar Thin Liquid Apple) 148 gm 1X ONCE PO ; Start 07/05/20 at 11:15; Stop 07/05/20 at 11:17; Status DC Active Scripts Active Reported Milk Of Magnesia (Magnesium Hydroxide) 400 Mg/5 Ml Oral.susp 400 Mg PO PRN PRN Metoprolol Tartrate 25 Mg Tablet 12.5 Mg PO DAILY Lorazepam 2 Mg/1 Ml Oral.conc 0.5 Mg PO Q4HRS Flonase Allergy Relief (Fluticasone Propionate) 9.9 Ml [place].susp 2 Sprays NS BID Dilantin (Phenytoin Sodium Extended) 100 Mg Capsule 200 Mg PO DAILYWSUP Amlodipine Besylate 2.5 Mg Tablet 2.5 Mg PO BID Acetaminophen 325 Mg Tablet 2 Tab PO PRN Q4-6HRS PRN 24 Days Vitals/I & O Vital Sign - Last 24 Hours 07/04/20 07/04/20 07/04/20 07/04/20 14:40 20:05 20:10 23:00 Temp 99.8 98.6 98.7 99.8 98.6 98.7 Pulse 79 57 85 Resp 18 18 18 B/P (MAP) 147/85 (105) 145/72 (96) 147/83 (104) Pulse Ox 98 93 94 O2 Delivery Room Air Room Air 07/05/20 07/05/20 07/05/20 07/05/20 02:43 07:00 08:00 10:35 Temp 99.0 97.7 97.8 99.0 97.7 97.8 Pulse 89 42 44 Resp 20 16 16 B/P (MAP) 131/53 (79) 152/77 (102) 150/78 (102) Pulse Ox 96 96 96 O2 Delivery Room Air Room Air Room Air Room Air Intake and Output 07/04/20 07/04/20 07/05/20 15:00 23:00 07:00 Intake Total 0 ml 0 ml Balance 0 ml 0 ml Justicifation of Admission Dx: Justifications for Admission: Justification of Admission Dx: Yes Aspiration Pneumonia: Hemodynamic Instability ALESSIO TYLER MD Jul 05, 2020 11:37
--- NOTE | 2020-07-05 13:29 | PDOC2 ---
GI CONSULT Date of Service: DATE: 07/05/20 TIME: 13:27 Reason For Consult: possible PEG HPI: HPI: 74 y/o male admitted w/ seizure and concern for aspiration pneumonia. Additional h/o CVA. D/w nurse - at living facility was on pureed diet w/ honey-thick liquids. Abnormal THEATER MANAGER eval here and today's videoswallow suggestive of silent aspiration of honey thick liquids. We are asked to see re: possible feeding tube placement. The patient (who is sitting at the nurses' station) has no GI complaints and denies difficulty or painful swallowing. His preference is to [facility] to [facility] and resume his pureed diet. He does not want a feeding tube. Denies reflux/heartburn, n/v, abd pain, diarrhea, constipation, and bleeding. No previous 'scopes. Denies GB, liver, pancreas, and PUD history. Again asks to eat and be discharged. PMH: PMH: CVA, seizures, CHF FH: Family History: No pertinent hx Social History: Smoke: No ROS: GEN: Denies fevers, chills, sweats HEENT: Denies blurred vision, sore throat CV: Denies chest pain RESP: Denies shortness of air, cough GI: Per HPI : Denies hematuria, dysuria ENDO: Denies weight changes NEURO: Denies confusion, dizziness MSK: Denies weakness, joint pain/swelling SKIN: Denies jaundice, pruritus Vitals: Vitals: Vital Signs Date Time Temp Pulse Resp B/P (MAP) Pulse Ox O2 Delivery O2 Flow Rate FiO2 07/05/20 10:35 97.8 44 16 150/78 (102) 96 Room Air 97.8 Allergies: Coded Allergies: lisinopril (Verified Allergy, Severe, 07/03/20) aspirin (Verified Allergy, Intermediate, 07/03/20) Medications: Current Medications Medications (Trade) Dose Ordered Sig/Guerrero Route PRN Reason Start Time Stop Time Status Last Admin Dose Admin Barium Sulfate (Varibar Thin Liquid Apple) 148 gm 1X ONCE PO 07/05/20 11:15 07/05/20 11:17 DC 07/05/20 11:45 Imaging: Imaging: CXR IMPRESSION: 1. Basilar atelectasis or infiltrates. Head CT Impression: No acute intracranial process. Moderate cerebral volume loss. Extensive chronic small vessel ischemic disease. Videoswallow pending Initial Videoswallow Study Report Videoswallow study completed. Baseline diet was puree w/honey thick liquids, therefore assessment focused on these consistencies. IMPRESSIONS: Aspiration of honey thick liquid; SILENT. No aspiration of puree but at moderate risk given signif amts of pharyngeal residue present p.swallow. Suspect aspiration as a contributing factor to current PCXR results. RECOMMENDATIONS: NPO indicated given current findings of no safe liquid consistency. If pt /family goals of care are for QOL and po diet is elected, would con't baseline diet of puree w/honey thick w/understanding of moderate risk of aspiration and potential complications related to same. Results explained to pt w/questionable understanding. Paged Dr Montes. Results called to THONY [place]. PE: GEN: NAD, thin HEENT: Atraumatic, PERRL, poor dentition LUNGS: diminished anteriorly HEART: RRR ABD: NABS, S/ND/NT EXTREMITY: No edema SKIN: No rashes, no jaundice NEURO/PSYCH: A & O 3 - speech is garbled and difficult to understand A/P: A/P: Seizure, h/o CVA, concern for aspiration pneumonia Dysphagia - THEATER MANAGER eval/videoswallow as above -- Pt declines PEG. Resume diet (THEATER MANAGER recs as above) and DC per Dr. Montes. D/w nurse. JACOB MEYER Jul 05, 2020 13:29
--- NOTE | 2020-07-05 13:47 | NUR ---
JES following. Spoke with RN and reviewed chart. Pt resides in LTC at [facility], , (fax) and will likely need SNU orders on discharge. Pt on room air and oral Augmentin. GI consulted and pt does not want a PEG per chart review. JES spoke with Dr. Limon about a discharge back to [facility]. SW to continue following. Addendum: 07/05/20 at 1515 by JOVANNA ANDRE Discharge orders received. JES phoned and faxed orders to James at [facility], , (fax). Packet of clinicals ready to be sent with patient. Transport arranged for 1630. RN to call report. No further JES needs at this time.
--- NOTE | 2020-07-05 13:57 | PDOC3 ---
Discharge Summary Date of Admission: Jul 03, 2020 Date of Discharge: Jul 05, 2020 Follow-Up: 3-5 days Admitting Diagnosis comment: DISCHARGE DX ======= 07/05/20 Seizure disorder with breakthrough seizure Subtherapeutic Dilantin level Abnormal CXR, possible aspiration PNA Anemia CHF Hx of stroke Left hemiplegia and hemiparesis Recurrent falls Have switched Dilantin to Keppra Okay for discharge any time if videoswallow ok ST concerned re high aspiration risk PT REFUSED THERAPY OR PEG TUBE WILL LEAVE AMA TODAY History of Present Illness History of Present Illness 07/05/2020 Patient seen and examined NAD Chart reviewed Discussed with RN Probable discharge [facility] D/C PLANNING 28 MIN LEFT AMA Vitals Vitals Vital Signs Date Time Temp Pulse Resp B/P (MAP) Pulse Ox O2 Delivery O2 Flow Rate FiO2 07/05/20 10:35 97.8 44 16 150/78 (102) 96 Room Air 97.8 Physical Exam Physical Exam GENERAL: Awake male, not in distress. VITAL SIGNS: Stable with a T-max 101.2. HEENT: NAD. NECK: Supple, no JVP, no lymphadenopathy. LUNGS: Clear. HEART: S1, S2 regular. ABDOMEN: Soft, nontender, no organomegaly. EXTREMITIES: No edema, cyanosis. SKIN: Unremarkable. NEUROLOGIC: The patient nods and minimal communication possible. General: Alert, Oriented X3, Cooperative, No acute distress Heart: Normal S1, Normal S2 Lungs: Clear Abdomen: Normal bowel sounds, Soft, No tenderness Extremities: No clubbing, No cyanosis Skin: No rashes, No significant lesion FINAL DIAGNOSIS Problems Medical Problems: (1) Bilateral pulmonary infiltrates on CXR Status: Acute (2) Person under investigation for COVID-19 Status: Acute (3) Seizure Status: Acute (4) Sepsis Status: Acute Brief Hospital Course Mr. Aquino is a 74 old [sex] who presented with [ ASPIRATION PNEUMONIA] CONDITION AT DISCHARGE: Comment (GUARDED) Discharge Medications Current Medications Morphine Sulfate (Morphine Sulfate) 5 mg 1X ONCE IV Last administered on 07/03/20at 12:45; Start 07/03/20 at 12:00; Stop 07/03/20 at 12:02; Status DC Fosphenytoin Sodium 1000 mg/ Sodium Chloride 70 ml @ 280 mls/hr 1X ONCE IV Last administered on 07/03/20at 14:42; Start 07/03/20 at 14:00; Stop 07/03/20 at 14:14; Status DC Ceftriaxone Sodium (Rocephin) 1 gm 1X ONCE IVP Last administered on 07/03/20at 14:39; Start 07/03/20 at 14:15; Stop 07/03/20 at 14:16; Status DC Azithromycin 250 ml @ 250 mls/hr 1X ONCE IV Last administered on 07/03/20at 15:03; Start 07/03/20 at 14:15; Stop 07/03/20 at 15:14; Status DC Ondansetron HCl (Zofran) 4 mg PRN Q8HRS PRN IV NAUSEA/VOMITING; Start 07/03/20 at 15:15; Stop 07/04/20 at 15:14; Status DC Morphine Sulfate (Morphine Sulfate) 4 mg PRN Q2HR PRN IV PAIN Last administered on 07/03/20at 15:49; Start 07/03/20 at 15:15; Stop 07/04/20 at 15:14; Status DC Sodium Chloride 1,000 ml @ 100 mls/hr 1X ONCE IV Last administered on 07/03/20at 17:57; Start 07/03/20 at 15:15; Stop 07/04/20 at 01:14; Status DC Levetiracetam (Keppra) 500 mg BID PO ; Start 07/03/20 at 21:30; Status Cancel Levetiracetam 500 mg/Dextrose 105 ml @ 420 mls/hr Q12HR IV Last administered on 07/05/20at 09:13; Start 07/03/20 at 22:00 Piperacillin Sod/ Tazobactam Sod (Zosyn Per Pharmacy) 1 each PRN DAILY PRN MC SEE COMMENTS; Start 07/04/20 at 10:30; Stop 07/05/20 at 10:01; Status DC Piperacillin Sod/ Tazobactam Sod 3.375 gm/Sodium Chloride 50 ml @ 100 mls/hr Q6HRS IV Last administered on 07/05/20at 05:15; Start 07/04/20 at 11:00; Stop 07/05/20 at 10:01; Status DC Amoxicillin/ Clavulanate Potassium (Augmentin 875/ 125mg) 1 tab BID PO ; Start 07/05/20 at 21:00 Barium Sulfate (Varibar Thin Liquid Apple) 148 gm 1X ONCE PO Last administered on 07/05/20at 11:45; Start 07/05/20 at 11:15; Stop 07/05/20 at 11:17; Status DC Active Scripts Active Reported Milk Of Magnesia (Magnesium Hydroxide) 400 Mg/5 Ml Oral.susp 400 Mg PO PRN PRN Metoprolol Tartrate 25 Mg Tablet 12.5 Mg PO DAILY Lorazepam 2 Mg/1 Ml Oral.conc 0.5 Mg PO Q4HRS Flonase Allergy Relief (Fluticasone Propionate) 9.9 Ml [place].susp 2 Sprays NS BID Dilantin (Phenytoin Sodium Extended) 100 Mg Capsule 200 Mg PO DAILYWSUP Amlodipine Besylate 2.5 Mg Tablet 2.5 Mg PO BID Acetaminophen 325 Mg Tablet 2 Tab PO PRN Q4-6HRS PRN 24 Days Vital Signs Vital Signs Date Time Temp Pulse Resp B/P (MAP) Pulse Ox O2 Delivery O2 Flow Rate FiO2 07/05/20 10:35 97.8 44 16 150/78 (102) 96 Room Air 97.8 Labs Laboratory Tests Test 07/03/20 14:45 07/03/20 18:00 07/04/20 04:55 Coronavirus (PCR) Not detected (Not Detected) Lactic Acid Level 2.2 mmol/L (0.4-2.0) White Blood Count 8.5 x10^3/uL (4.0-11.0) Red Blood Count 3.41 x10^6/uL (4.30-5.70) Hemoglobin 11.4 g/dL (13.0-17.5) Hematocrit 33.4 % (39.0-53.0) Mean Corpuscular Volume 98 fL (79-100) Mean Corpuscular Hemoglobin 33 pg (25-35) Mean Corpuscular Hemoglobin Concent 34 g/dL (31-37) Red Cell Distribution Width 13.0 % (11.5-14.5) Platelet Count 209 x10^3/uL (140-400) Neutrophils (%) (Auto) 72 % (31-73) Lymphocytes (%) (Auto) 14 % (24-48) Monocytes (%) (Auto) 14 % (0-9) Eosinophils (%) (Auto) 0 % (0-3) Basophils (%) (Auto) 0 % (0-3) Neutrophils # (Auto) 6.1 x10^3/uL (1.8-7.7) Lymphocytes # (Auto) 1.2 x10^3/uL (1.0-4.8) Monocytes # (Auto) 1.2 x10^3/uL (0.0-1.1) Eosinophils # (Auto) 0.0 x10^3/uL (0.0-0.7) Basophils # (Auto) 0.0 x10^3/uL (0.0-0.2) Sodium Level 142 mmol/L (136-145) Potassium Level 3.6 mmol/L (3.5-5.1) Chloride Level 107 mmol/L (98-107) Carbon Dioxide Level 30 mmol/L (21-32) Anion Gap 5 (6-14) Blood Urea Nitrogen 9 mg/dL (8-26) Creatinine 1.2 mg/dL (0.7-1.3) Estimated GFR (Cockcroft-Gault) 71.2 BUN/Creatinine Ratio 8 (6-20) Glucose Level 116 mg/dL (70-99) Calcium Level 8.4 mg/dL (8.5-10.1) Total Bilirubin 0.9 mg/dL (0.2-1.0) Aspartate Amino Transf (AST/SGOT) 19 U/L (15-37) Alanine Aminotransferase (ALT/SGPT) 11 U/L (16-63) Alkaline Phosphatase 66 U/L (46-116) Total Protein 6.4 g/dL (6.4-8.2) Albumin 3.1 g/dL (3.4-5.0) Albumin/Globulin Ratio 0.9 (1.0-1.7) Allergies Allergies Coded Allergies Type Severity Reaction Last Updated Verified lisinopril Allergy Severe 07/03/20 Yes aspirin Allergy Intermediate 07/03/20 Yes Disposition/Orders: Other (D/C TO SNF ) Justicifation of Admission Dx: Justifications for Admission: Justification of Admission Dx: Yes Aspiration Pneumonia: Hemodynamic Instability ALESSIO TYLER MD Jul 05, 2020 13:57
[2020-07-05] MEDS ORDERED: AMOX1TAB11 PO (13:59)
[2020-07-05] MEDS ORDERED: LEVE500T57 PO (13:59)
--- NOTE | 2020-07-05 14:00 | SNU/HH DC ---
DISCHARGE ORDERS DISCHARGE INFORMATION: FINAL DIAGNOSIS Problems Medical Problems: (1) Bilateral pulmonary infiltrates on CXR Status: Acute (2) Person under investigation for COVID-19 Status: Acute (3) Seizure Status: Acute (4) Sepsis Status: Acute CONDITION ON DISCHARGE: Guarded CODE STATUS: Code Status: Full FCI: SNF STAY <30 DAYS: Yes HOSPICE: HOSPICE: No HOSPICE EVAL & TREAT: No LTAC: ADMIT TO LTAC: No POST DISCHARGE ORDERS: ACTIVITY ORDERS: Activity as tolerated DIET AFTER DISCHARGE: Low Sodium 2 gm CHECKS AFTER DISCHARGE: CHECKS AFTER DISCHARGE: Check blood press - daily TREATMENT/EQUIPMENT ORDERS: Physical Therapy For: Evalulation/Treatment Occupational Therapy For: Evaluation/Treatment Speech Language Pathology For: Evaluation/Treatment DISCHARGE MEDICATIONS: Home Meds Active Scripts Levetiracetam (KEPPRA XR) 500 Mg Tab.er.24h, 1 TAB PO BID for SEIZURES for 30 Days, #60 TAB 0 Refills Prov:ALESSIO TYLER MD 07/05/20 Amoxicillin/Potassium Clav (AMOX TR-K CLV 875-125 MG TAB) 1 Each Tablet, 1 TAB PO BID for PNEUMONIA for 10 Days, #20 TAB Prov:ALESSIO TYLER MD 07/05/20 Reported Medications Magnesium Hydroxide (MILK OF MAGNESIA) 400 Mg/5 Ml Oral.susp, 400 MG PO PRN PRN for CONSTIPATION, MISC 07/03/20 Metoprolol Tartrate (METOPROLOL TARTRATE) 25 Mg Tablet, 12.5 MG PO DAILY for FOR HYPERTENSION, #60 TAB 0 Refills 07/03/20 Lorazepam (LORAZEPAM) 2 Mg/1 Ml Oral.conc, 0.5 MG PO Q4HRS for epilepsy, MISC 07/03/20 Fluticasone Propionate (Flonase Allergy Relief) 9.9 Ml [place].susp, 2 SPRAYS NS BID for allergies, BOTTLE 07/03/20 Amlodipine Besylate (AMLODIPINE BESYLATE) 2.5 Mg Tablet, 2.5 MG PO BID for hypertension, TAB 07/03/20 Acetaminophen (ACETAMINOPHEN) 325 Mg Tablet, 2 TAB PO PRN Q4-6HRS PRN for pain or fever for 24 Days, #100 TAB 0 Refills 07/03/20 Discontinued Reported Medications Phenytoin Sodium Extended (DILANTIN) 100 Mg Capsule, 200 MG PO DAILYWSUP for epilepsy, CAP 07/03/20 ALESSIO TYLER MD Jul 05, 2020 14:00
[2020-07-05 15:00] VITALS: BP 149/68
--- NOTE | 2020-07-05 16:00 | NUR ---
Patient has been trying to get out of bed several times this morning, stating that he wants to eat and was asking for his dinner. This nurse and other staff member explained to him that he needs to be evaluated by the speech therapist. Patient was upset saying that he's been NPO since his admission. He was placed on the recliner with the chair alarm on, but still keep getting up. Given that he's a high fall risk, patient was brought to the nurse station for close observation. bead picker and supervisor filter assembly aware of the situation.
--- NOTE | 2020-07-05 16:43 | NUR ---
Report given to Sara BHANDARI of [facility] at 1645, discussed home meds and patient's diet, resuming his prior diet in the senior living. Spoke to the patient's POA via phone who was present also in the senior living. Discussed the patient's decision refusing PEG tube, verbalized understanding and she stated that she's aware that patient will refuse that procedure. [place]sequences explained, verbalized understanding.
--- NOTE | 2020-07-05 16:48 | NUR ---
Discharge Note: NICOLE HAMMOND FOSSIL Discharge instructions and discharge home medications reviewed with Sara BHANDARI of [facility] and a copy given to the transport personnel. All questions have been answered and understanding verbalized. The following instructions and handouts were given: To resume prior diet, patient refused PEG tube placement. Home meds as directed. Watch out for fever, seizures, difficulty breathing, severe weakness. Follow up with PCP. Discontinued lines and drains: peripheral IV intact, patient tolerated removal, no complications noted Patient discharged to [facility] via wheelchair accompanied by transport personnel at 1622.
[2020-07-05] MEDS ORDERED: AMOXICILLIN/K CLAV 875/125MG TABLET. PO SCH (21:00)
--- NOTE | 2020-07-06 12:16 | RAD ---
PROCEDURE: VIDEO SWALLOW STUDY STUDY DATE: 07/05/2020 CLINICAL INDICATION / HISTORY: Reason: dysphagia, 2.2 MIN FLUORO TIME / Spl. Instructions: / History: . TECHNIQUE: Real-time fluoroscopic imaging examination was performed in conjunction with speech therapy. The patient was administered barium labeled thin liquids, nectar, honey, pudding, and solid consistency compounds. FLUOROSCOPY TIME: 2.2 minutes. Number of Images: 696 images acquired during video flouroscopy COMPARISON: None FINDINGS: Patient is edentulous. Prolonged mastication. Silent aspiration was observed with honey thick liquids. No significant laryngeal penetration or tracheal aspiration with pudding thick consistency. Patient exhibited moderate residuals in the vallecula and piriform sinuses with thicker food consistencies.. IMPRESSION: Dysphagia of the oral and pharyngeal phases. Silent aspiration with honey thick liquids Please refer to speech pathology notes for complete details and recommendations. Electronically signed by: Sowmya Cleaning MD (07/06/2020 12:13 PM) [id number]
== END 2020-07-05 16:22 | DRG 871 ==
LOC: ER 10:51 → 6 SOUTH 14:32 → 5 NORTH 07-04 20:09
PROVIDERS: ADMIT Internal Medicine; ATTEND Internal Medicine
DX: A41.9 Sepsis, unspecified organism (principal); J69.0 Pneumonitis due to inhalation of food and vomit; I50.42 Chronic combined systolic (congestive) and diastolic (congestive) heart failure; R47.01 Aphasia; I69.354 Hemiplegia and hemiparesis following cerebral infarction affecting left non-dominant side; D64.9 Anemia, unspecified; F01.50 Vascular dementia, unspecified severity, without behavioral disturbance, psychotic disturbance, mood disturbance, and anxiety; G40.909 Epilepsy, unspecified, not intractable, without status epilepticus; R13.10 Dysphagia, unspecified; Z53.29 Procedure and treatment not carried out because of patient's decision for other reasons; R29.6 Repeated falls; Z20.828 Contact with and (suspected) exposure to other viral communicable diseases; Z82.49 Family history of ischemic heart disease and other diseases of the circulatory system; Z79.899 Other long term (current) drug therapy; Z88.8 Allergy status to other drugs, medicaments and biological substances; I69.311 Memory deficit following cerebral infarction; I69.392 Facial weakness following cerebral infarction
CPT/HCPCS: 36415; 70450; 71045; 74230; 80053; 80185; 80307; 81001; 82553; 83605; 83735; 83880; 84145; 84484; 85007; 85025; 85610; 85730; 87040; 93005; 96365; 96367; 96375; 99285; J0456; J0696; J1953; J2270; J2543; J7030; J7060; Q2009; 92507-GN; 92610-GN; 97535-GO; G0378; U0003-CS